=== PATIENT | male | born 1945 | race Caucasian/White ===

== ENCOUNTER 2019-05-10 07:08 | Day surgery (SDC) | payer BC, OTHER ==
[~2019-05-10 07:08] MED LIST: BUPIVACAINE HCL 0.75% INJ/PF (7.5 MG/1 ML) 10 ML SDV OD PRN; DORZOLAMIDE HCL 2%/TIMOLOL MALEAT 0.5% OPH SOLN 10 ML OD PRN; KETOROLAC TROMETHAMINE 0.45% 4 DROP/0.4 ML DROPERETTE OD PRN; LIDOCAINE 4% INJ/PF (40 MG/ML) 5 ML AMPUL OD PRN
[2019-05-10] MEDS: BESIFLOXACIN HCL 0.6% OPH SUSP 5 ML BOTTLE OD PRN ×3 (07:51→08:45)
[2019-05-10] MEDS: CYCLOPENTOLATE 0.2%/PHENYLEPHRINE 1% OPH SOLN 2 ML OD PRN ×3 (07:51→08:11)
[2019-05-10] MEDS: TROPICAMIDE 1% OPH SOLN 15 ML OD PRN ×3 (07:51→08:11)
[2019-05-10] MEDS: TETRACAINE HCL 0.5% OPH SOLN 4 ML OD PRN ×3 (07:52→08:23)
[2019-05-10] MEDS ORDERED: MIDAZOLAM 2 MG/2 ML INJ ONE (08:05)
[2019-05-10] MEDS ORDERED: FENTANYL CITRATE INJ/PF 100 MCG/2 ML AMPUL ONE (08:05)
[2019-05-10] MEDS ORDERED: EPINEPHRINE INJ/PF 1 MG/1 ML AMPULE ONE (08:39)
[2019-05-10] MEDS ORDERED: LIDOCAINE 1% INJ-PF (10 MG/ML) 30 ML SDV ONE (08:39)
[2019-05-10] MEDS ORDERED: CHONDR SU A NA/HYALUR SOD INTRAOCULAR SYSTEM 1 KIT IO ONE (08:39)
--- NOTE | 2019-05-10 08:52 | Operative Report ---
Operative Report-[facility] Operative Report: DATE OF SURGERY: 05/10/2019 PREOPERATIVE DIAGNOSIS: CATARACT, RIGHT EYE. POSTOPERATIVE DIAGNOSIS: CATARACT, RIGHT EYE. PROCEDURE PERFORMED: PHACOEMULSIFICATION WITH POSTERIOR CHAMBER INTRAOCULAR LENS, RIGHT EYE. Intraocular Lens Model : SN 60 WF 19.5 Total Phaco Time: 6.37 CDE SURGEON: NANCY VALDIVIA MD ANESTHESIA: TOPICAL WITH MAC. INDICATIONS FOR SURGERY: Difficulty seen words on TV. PROCEDURE: The patient was brought to the Operating Room and placed on the operative table. Following tetracaine drops, topical anesthesia was administered. This consisted of instrument wipe pledgets soaked in a solution of 4% Xylocaine mixed with 0.75% Marcaine in a 1:2 ratio. A 2 x 1 cm pledget was placed in the superior fornix. A 1 x 1 cm pledget was placed in the inferior fornix. The eye was patched shut for 5 minutes. The patch was removed. The eye was sterilely prepped and draped in the usual manner. Lid speculum was placed in the eye. The pledgets were removed. 4-0 black silk sutures were placed around the superior and the inferior rectus muscles to be used as traction. A conjunctival peritomy was made at the 10 o'clock position. Hemostasis was obtained with bipolar cautery. A posterior limbal groove was created using a crescent knife and dissected anteriorly towards the cornea. A sharp point blade was used to create a paracentesis site at the 2 o'clock position. 0.2 cc non preserved Lidocaine was injected into the anterior chamber. A 2.4 mm keratome was used to enter the anterior chamber through the groove. Viscoelastic was injected into the anterior chamber. An anterior capsulotomy was performed using Utrata forceps in a capsulorrhexis fashion. Hydrodissection and hydrodelineation were performed. Phacoemulsification was performed in [id number] technique. Following this, the I/A unit was used to remove residual cortex. Viscoelastic was injected into the capsular bag. The Intraocular lens was placed in the capsular bag. The I/A unit was used to remove residual viscoelastic. The wound was seen to be watertight under high and low pressure, and no sutures were placed. The intraocular lens was well centered. The pressure was adjusted in the eye to normal pressure. The 4-0 black silk sutures and lid speculum were removed. The eye was shielded after Besivance and Cosopt drops were placed. The patient tolerated the procedure well and was sent to the Recovery Room in good condition.
== END 2019-05-10 09:20 | disposition home or self-care (01) ==
LOC: SC 07:08
PROVIDERS: ATTEND Ophthalmology
DX: H25.813 Combined forms of age-related cataract, bilateral (principal); H16.223 Keratoconjunctivitis sicca, not specified as Sjogren's, bilateral; E11.22 Type 2 diabetes mellitus with diabetic chronic kidney disease; I12.9 Hypertensive chronic kidney disease with stage 1 through stage 4 chronic kidney disease, or unspecified chronic kidney disease; N18.3 Chronic kidney disease, stage 3 (moderate); Z79.4 Long term (current) use of insulin; Z79.899 Other long term (current) drug therapy
CPT/HCPCS: 66984; 82962; 00142; V2632; J2250; J3490 ×5; J0171; J3010; 142

== ENCOUNTER 2019-05-31 06:45 | Day surgery (SDC) | payer OTHER ==
[~2019-05-31 06:45] MED LIST changes: -BUPIVACAINE HCL 0.75% INJ/PF (7.5 MG/1 ML) 10 ML SDV OD PRN; +BUPIVACAINE HCL 0.75% INJ/PF (7.5 MG/1 ML) 10 ML SDV OS PRN; -DORZOLAMIDE HCL 2%/TIMOLOL MALEAT 0.5% OPH SOLN 10 ML OD PRN; -KETOROLAC TROMETHAMINE 0.45% 4 DROP/0.4 ML DROPERETTE OD PRN; +KETOROLAC TROMETHAMINE 0.45% 4 DROP/0.4 ML DROPERETTE OS PRN; -LIDOCAINE 4% INJ/PF (40 MG/ML) 5 ML AMPUL OD PRN; +LIDOCAINE 4% INJ/PF (40 MG/ML) 5 ML AMPUL OS PRN
[2019-05-31] MEDS ORDERED: ONDANSETRON HCL INJ/PF 4 MG/2 ML SDV ONE (06:46)
[2019-05-31] MEDS ORDERED: MIDAZOLAM 2 MG/2 ML INJ ONE (06:47)
[2019-05-31] MEDS ORDERED: FENTANYL CITRATE INJ/PF 100 MCG/2 ML AMPUL ONE (06:47)
[2019-05-31] MEDS: BESIFLOXACIN HCL 0.6% OPH SUSP 5 ML BOTTLE OS PRN ×4 (07:50→08:50)
[2019-05-31] MEDS: CYCLOPENTOLATE 0.2%/PHENYLEPHRINE 1% OPH SOLN 2 ML OS PRN ×3 (07:50→08:10)
[2019-05-31] MEDS: TROPICAMIDE 1% OPH SOLN 15 ML OS PRN ×3 (07:50→08:10)
[2019-05-31] MEDS: TETRACAINE HCL 0.5% OPH SOLN 4 ML OS PRN ×4 (07:50→08:24)
[2019-05-31] MEDS: CHONDR SU A NA/HYALUR INTRAOC KIT (SURGICARE) ONE ×2 (08:38)
[2019-05-31] MEDS: EPINEPHRINE INJ/PF 1 MG/1 ML AMPULE ONE ×2 (08:38)
[2019-05-31] MEDS: LIDOCAINE 1% INJ-PF (10 MG/ML) 30 ML SDV ONE ×2 (08:38)
[2019-05-31] MEDS: DORZOLAMIDE HCL 2%/TIMOLOL MALEAT 0.5% OPH SOLN 10 ML OS PRN ×2 (08:50)
--- NOTE | 2019-05-31 12:48 | Operative Report ---
Operative Report-[facility] Operative Report: DATE OF SURGERY: 05/31/2019 PREOPERATIVE DIAGNOSIS: CATARACT, LEFT EYE. POSTOPERATIVE DIAGNOSIS: CATARACT, LEFT EYE. PROCEDURE PERFORMED: PHACOEMULSIFICATION WITH POSTERIOR CHAMBER INTRAOCULAR LENS, LEFT EYE. Intraocular Lens Model : SN 60 WF 19.5 Total Phaco Time: 4.07 CDE SURGEON: NANCY VALDIVIA MD ANESTHESIA: TOPICAL WITH MAC. INDICATIONS FOR SURGERY: Difficultly driving at night, difficulty seeing TV PROCEDURE: The patient was brought to the Operating Room and placed on the operative table. Following tetracaine drops, topical anesthesia was administered. This consisted of instrument wipe pledgets soaked in a solution of 4% Xylocaine mixed with 0.75% Marcaine in a 1:2 ratio. A 2 x 1 cm pledget was placed in the superior fornix. A 1 x 1 cm pledget was placed in the inferior fornix. The eye was patched shut for 5 minutes. The patch was removed. The eye was sterilely prepped and draped in the usual manner. Lid speculum was placed in the eye. The pledgets were removed. 4-0 black silk sutures were placed around the superior and the inferior rectus muscles to be used as traction. A conjunctival peritomy was made at the 10 o'clock position. Hemostasis was obtained with bipolar cautery. A posterior limbal groove was created using a crescent knife and dissected anteriorly towards the cornea. A sharp point blade was used to create a paracentesis site at the 2 o'clock position. 0.2 cc non preserved Lidocaine was injected into the anterior chamber. A 2.4 mm keratome was used to enter the anterior chamber through the groove. Viscoelastic was injected into the anterior chamber. An anterior capsulotomy was performed using Utrata forceps in a capsulorrhexis fashion. Hydrodissection and hydrodelineation were performed. Phacoemulsification was performed in [id number] technique. Following this, the I/A unit was used to remove residual cortex. Viscoelastic was injected into the capsular bag. The Intraocular lens was placed in the capsular bag. The I/A unit was used to remove residual viscoelastic. The wound was seen to be watertight under high and low pressure, and no sutures were placed. The intraocular lens was well centered. The pressure was adjusted in the eye to normal pressure. The 4-0 black silk sutures and lid speculum were removed. The eye was shielded after Besivance and Cosopt drops were placed. The patient tolerated the procedure well and was sent to the Recovery Room in good condition.
== END 2019-05-31 09:22 | disposition home or self-care (01) ==
LOC: SC 06:45
PROVIDERS: ATTEND Ophthalmology
DX: H25.813 Combined forms of age-related cataract, bilateral (principal); H16.223 Keratoconjunctivitis sicca, not specified as Sjogren's, bilateral; E11.22 Type 2 diabetes mellitus with diabetic chronic kidney disease; I12.9 Hypertensive chronic kidney disease with stage 1 through stage 4 chronic kidney disease, or unspecified chronic kidney disease; N18.3 Chronic kidney disease, stage 3 (moderate); Z79.899 Other long term (current) drug therapy; Z79.4 Long term (current) use of insulin; Z99.2 Dependence on renal dialysis
CPT/HCPCS: 66984; 82962; V2632; J2250; J3490 ×5; J0171; J3010; J2405; 142

== ENCOUNTER 2019-11-19 22:47 | Inpatient (IN) | payer OTHER, MEDICARE ==
--- NOTE | 2019-11-19 23:16 | ER Document Report ---
ED General - General Chief Complaint: Altered Mental Status Stated Complaint: ALTERED MENTAL STATUS Time Seen by Provider: 11/19/19 22:58 Primary Care Provider: HAM,LISANDRO [Primary Care Provider] - Follow up as needed Notes: Patient is a 74-year-old male that comes emergency department for chief complaint of worsening confusion for the past 3 days and over the past day not being able to walk. He comes by EMS from home. Patient states that he has generalized weakness but he denies focal weakness, chest pain, abdominal pain, vomiting, fever, shortness of breath, headache, or fall injury. He does report some back pain but this is not reported to be new. Past medical history includes insulin-dependent diabetes, hypertension, chronic pain management, and he states that he has a tremor at baseline. He denies any cardiac history, he is not reported to be on a blood thinner, no other medical history reported. EMS does not give any additional report. Patient has no additional complaints. He states that he has not taken his medication over the past couple of days "because I could not walk over to get them like I normally can". TRAVEL OUTSIDE OF THE [place] IN LAST 30 DAYS: No - Related Data Allergies/Adverse Reactions: No Known Allergies Allergy (Verified 05/10/19 07:59) Past Medical History - General Information source: Patient, Relative - Social History Smoking Status: Never Smoker Frequency of alcohol use: None Drug Abuse: None Lives with: Family Family History: Reviewed & Not Pertinent Patient has homicidal ideation: No - Past Medical History Cardiac Medical History: Reports: Hx Hypertension Denies: Hx Heart Attack Pulmonary Medical History: Denies: Hx Asthma Neurological Medical History: Denies: Hx Cerebrovascular Accident, Hx Seizures Endocrine Medical History: Reports: Hx Diabetes Mellitus Type 2 - Insulin- dependent GI Medical History: Denies: Hx Hepatitis, Hx Hiatal Hernia, Hx Ulcer Infectious Medical History: Denies: Hx Hepatitis Past Surgical History: Reports: Hx Orthopedic Surgery - R SHOULDER X2. Denies: Hx Open Heart Surgery, Hx Pacemaker - Immunizations Hx Diphtheria, Pertussis, Tetanus Vaccination: Yes Hx Pneumococcal Vaccination: 07/06/04 Review of Systems - Review of Systems Constitutional: See HPI EENT: No symptoms reported Cardiovascular: No symptoms reported Respiratory: No symptoms reported Gastrointestinal: No symptoms reported Genitourinary: No symptoms reported Male Genitourinary: No symptoms reported Musculoskeletal: No symptoms reported Skin: No symptoms reported Hematologic/Lymphatic: No symptoms reported Neurological/Psychological: See HPI Physical Exam - Vital signs Vitals: Temp 98.7 F 11/19/19 22:48 - Notes Notes: GENERAL: Alert, responsive, does not appear to be in distress. Somewhat disheveled. HEAD: Normocephalic, atraumatic. EYES: Pupils equal, round, and reactive to light. Extraocular movements intact. ENT: Oral mucosa parched including lips and tongue, tongue midline. Oropharynx unremarkable. Airway patent. NECK: Full range of motion. Supple. Trachea midline. No lymphadenopathy. LUNGS: Clear to auscultation bilaterally, no wheezes, rales, or rhonchi. No respiratory distress. Non-tender chest wall. HEART: Regular rate and rhythm. No murmur ABDOMEN: Soft, non-tender. Non-distended. EXTREMITIES: Moves all 4 extremities spontaneously. No edema, normal radial and dorsalis pedis pulses bilaterally. No cyanosis. BACK: no cervical, thoracic, lumbar midline tenderness. No saddle anesthesia, normal distal neurovascular exam. Moves all extremities in full range of motion. NEUROLOGICAL: Patient with a very noticeable tremor especially of the arms and with intention movements. Alert and oriented to person and place only, cannot give good details of events. Normal speech. Cranial nerves II through XII grossly intact. Strength 5/5 in all extremities. Patient very ataxic and falls to the left when he tries to ambulate. Patient has to be fully assisted to walk. PSYCH: Normal affect, normal mood. SKIN: Warm, dry, normal turgor. No rashes or lesions noted. Course - Re-evaluation Re-evalutation: Patient is tremulous with almost chorea movements, he answers questions and is alert but he is confused to any details other than person and place. He denies any pain or current complaints. He does not have obvious focal numbness or weakness although he does have some random almost spastic movements when trying to perform coordination testing. In addition to this patient has severe ataxia, I tried to have him walk twice and both times he fell to the left side and required to complete assistance to get back onto the bed. CT of the head was performed which shows no acute lesion. We spoke to the over the phone, she states that up until about 2 days ago patient was able to ambulate without difficulty, she states it has been difficult to care for him over the past 2 days, patient does state that he has not eaten much. Patient was initially hypoglycemic at 60, he was given some dextrose, this increased slightly, we performed a swallow screen and then patient was given p.o. nourishment. CBC nonspecific with a mild normocytic anemia. Chemistry shows acute renal insufficiency with creatinine of 3.85 previous was 1.92. Initially could not give fluids because of hypoglycemia but patient is slowly receiving fluids. Patient had very dry mucous membranes, BUN is elevated. Bicarbonate slightly low at 20 but venous blood gases unremarkable. Unable to obtain urinalysis initially because patient urinated into his briefs, we will obtain a cath sample soon. Chest x-ray is negative. Discussed with patient, discussed with Dr. Serna. Patient will require admission for suspected CVA, needing MRI, inability to ambulate or care for himself at home. 11/20/19 Dr. Gomez has accepted to [facility] full admission. - Vital Signs Vital signs: Temp Pulse Resp BP Pulse Ox 98.7 F 85 16 117/93 H 92 11/19/19 22:48 11/20/19 04:48 11/20/19 06:00 11/20/19 05:01 11/20/19 06:00 - Laboratory Result Diagrams: 11/19/19 23:39 11/19/19 23:39 Laboratory results interpreted by me: 11/19/19 11/19/19 11/20/19 23:39 23:39 05:05 RBC 3.90 L Hgb 12.4 L Hct 34.9 L RDW 14.3 H Chloride 112 H Carbon Dioxide 20 L BUN 59 H Creatinine 3.85 H Est GFR ( Amer) 19 L Est GFR (MDRD) Non-Af 16 L Glucose 60 L Lactic Acid Calcium 8.0 L AST 76 H Total Protein 5.7 L Albumin 3.0 L Urine Protein 100 H Urine Ketones TRACE H Urine Ascorbic Acid 40 H 11/20/19 06:34 RBC Hgb Hct RDW Chloride Carbon Dioxide BUN Creatinine Est GFR ( Amer) Est GFR (MDRD) Non-Af Glucose Lactic Acid 0.5 L Calcium AST Total Protein Albumin Urine Protein Urine Ketones Urine Ascorbic Acid Discharge - Discharge Clinical Impression: Unable to ambulate, Ataxia, Acute renal insufficiency, Hypoglycemia Condition: Stable Disposition: ADMITTED INPATIENT Admitting Provider: Patricia (Hospitalist) Unit Admitted: [facility] [[facility]] - Follow up as needed
[2019-11-20 00:06] LABS: ABSOLUTE BASOPHILS # (AUTO) 0.1 10^3/uL (0.0-0.2); ABSOLUTE EOSINOPHILS # (AUTO) 0.3 10^3/uL (0.0-0.6); ABSOLUTE LYMPHOCYTES (AUTO) 1.6 10^3/uL (0.5-4.7); ABSOLUTE MONOCYTES (AUTO) 0.7 10^3/uL (0.1-1.4); ABSOLUTE NEUT (AUTO) 6.8 10^3/uL (1.7-8.2); BASOPHILS % (AUTO) 0.6 % (0-2); EOSINOPHILS % (AUTO) 2.8 % (0-6); HEMATOCRIT 34.9 % (37.9-51.0); HEMOGLOBIN 12.4 g/dL (13.5-17.0); LYMPHOCYTES % (AUTO) 16.5 % (13-45); MEAN CORPUSCULAR HEMOGLOBIN 31.8 pg (27.0-33.4); MEAN CORPUSCULAR HGB CONC 35.5 g/dL (32.0-36.0); MEAN CORPUSCULAR VOLUME 90 fl (80-97); MONOCYTES % (AUTO) 7.8 % (3-13); PLATELET COUNT 186 10^3/uL (150-450); RED CELL DISTRIBUTION WIDTH 14.3 % (11.5-14.0); SEGMENTED NEUTROPHILS % (AUTO) 72.3 % (42-78); TOTAL CELLS COUNTED % (AUTO) 100 %; WHITE BLOOD COUNT 9.5 10^3/uL (4.0-10.5)
[2019-11-20 00:17] LABS: INTERNATIONAL RATION (INR) 1.11; PROTHROMBIN TIME 14.4 SEC (11.4-15.4)
[2019-11-20 00:21] LABS: ALKALINE PHOSPHATASE 68 U/L (38-126); ANION GAP 10 (5-19); ASPARTATE AMINO TRANSFERASE 76 U/L (17-59); BILIRUBIN,TOTAL 0.5 mg/dL (0.2-1.3); BLOOD UREA NITROGEN 59 mg/dL (7-20); CARBON DIOXIDE 20 mmol/L (22-30); CHLORIDE 112 mmol/L (98-107); TOTAL PROTEIN 5.7 g/dL (6.3-8.2)
--- NOTE | 2019-11-20 00:21 | RADIOLOGY REPORT (SQ) ---
EXAM DESCRIPTION: CT HEAD WITHOUT IV CONTRAST COMPLETED DATE/TME: 11/19/2019 23:07 CLINICAL HISTORY: 74 years, Male, altered mental status COMPARISON: 09/11/2011 CT TECHNIQUE: [id number] Images stored on PACS. All CT scanners at this facility use dose modulation, iterative reconstruction, and/or weight based dosing when appropriate to reduce radiation dose to as low as reasonably achievable (ALARA). [facility]: Dose Right [facility]: CareDose [facility]: Dose Right [facility]: Teradose 4D [facility]: [employer] LIMITATIONS: None. FINDINGS: The globes are intact. The paranasal sinuses and mastoid air cells are well aerated. No displaced or depressed skull fracture. No intra or extra-axial hemorrhage. CT is limited for evaluation of acute infarct. No CT evidence for large or territorial acute infarct. Age-appropriate atrophy with minor small vessel ischemic change. No mass or midline shift IMPRESSION: Age-appropriate atrophy with minor small vessel ischemic change TECHNICAL DOCUMENTATION: Quality ID # [id number]: Final reports with documentation of one or more dose reduction techniques (e.g., Automated exposure control, adjustment of the mA and/or kV according to patient size, use of iterative reconstruction technique) copyright 2011 [employer]- All Rights Reserved
[2019-11-20 00:24] LABS: GLUCOSE 60 mg/dL (75-110)
--- NOTE | 2019-11-20 00:24 | RADIOLOGY REPORT (SQ) ---
EXAM DESCRIPTION: XR CHEST 1 VIEW COMPLETED DATE/TME: 11/19/2019 23:08 CLINICAL HISTORY: 74 years, Male, altered mental status COMPARISON: CT chest 09/11/2011 NUMBER OF VIEWS: 1 TECHNIQUE: Portable chest LIMITATIONS: None. FINDINGS: Heart size is normal. The lungs are clear. There is no pneumothorax IMPRESSION: Negative chest copyright 2011 [employer]- All Rights Reserved
[2019-11-20] MEDS ORDERED: DEXTROSE 50%-WATER 25 GM/50 ML DISP.SYRIN IV ONE ×2 (00:26→00:27)
[2019-11-20 00:32] LABS: VENOUS BLOOD BASE EXCESS -5.4 mmol/L; VENOUS BLOOD HCO3 20.9 mmol/L (20-32); VENOUS BLOOD PCO2 43.8 mmHg (35-63); VENOUS BLOOD PH 7.3 (7.30-7.42)
[2019-11-20] MEDS ORDERED: NORMAL SALINE 500 ML IV ONE ×2 (03:12→06:12)
[2019-11-20 05:57] LABS: APPEARANCE,URINE SLIGHTLY-CLOUDY; BILIRUBIN,URINE NEGATIVE (NEGATIVE); COLOR,URINE YELLOW; GLUCOSE, URINE NEGATIVE (NEGATIVE); KETONES,URINE TRACE mg/dL (NEGATIVE); PROTEIN,URINE 100 mg/dL (NEGATIVE); URINE SPECIFIC GRAVITY 1.014; UROBILINOGEN,URINE NEGATIVE mg/dL (<2.0)
[2019-11-20] MEDS ORDERED: DEXTROSE 40% GEL 15 GM TUBE PO PRN ×2 (07:57)
[2019-11-20] MEDS ORDERED: GLUCAGON,HUMAN RECOMB 1 MG INJ IM PRN (07:57)
[2019-11-20] MEDS ORDERED: DEXTROSE 50%-WATER 25 GM/50 ML DISP.SYRIN IV PRN ×2 (07:57)
[2019-11-20] MEDS: INSULIN LISPRO 100 UNIT/ML 3 ML VIAL SUBCUT SCH ×4 (09:08→22:44)
[2019-11-20] MEDS ORDERED: MAGNESIUM HYDROXIDE SUSP 30 ML UDCUP PO PRN (09:43)
[2019-11-20] MEDS ORDERED: ACETAMINOPHEN 325 MG TABLET PO PRN (09:43)
[2019-11-20] MEDS ORDERED: HYDROCODONE/ACETAMINOPHEN 10-325 MG TABLET PO PRN (09:58)
[2019-11-20] MEDS ORDERED: MAG HYDROX/AL HYDROX/SIMETH SUSP 30 ML UDCUP PO PRN (10:07)
[2019-11-20 10:22] LABS: ALBUMIN 3.3 g/dL (3.5-5.0); ANION GAP 7 (5-19); BLOOD UREA NITROGEN 64 mg/dL (7-20); CALCIUM 8.4 mg/dL (8.4-10.2); CARBON DIOXIDE 24 mmol/L (22-30); CHLORIDE 111 mmol/L (98-107); GLUCOSE 71 mg/dL (75-110); PHOSPHORUS 4.6 mg/dL (2.5-4.5); POTASSIUM 4.3 mmol/L (3.6-5.0)
--- NOTE | 2019-11-20 10:25 | PDOC H&P ---
History of Present Illness Admission Date/PCP: 11/20/19 07:29 [facility] Patient complains of: Weakness and imbalance History of Present Illness: MINAL ROBERT JR is a 74 year old male who is a poor historian. He states he has a past medical history of hypertension, diabetes and increased cholesterol. He reports that on Thursday he had an overwhelming sense of poor balance and weakness. He went to bed. For the next 3 to 4 days he did not get out of bed. He would urinate in the bed. He was not eating or drinking much. His finally brought him to the hospital last night. His BUN and creatinine were elevated at 57 and 3.85. His AST was also slightly elevated. Despite being diabetic his glucose was only 60. CT scan of the head without contrast was negative. In the emergency room evaluation revealed a chronic tremor but when attempting to ambulate the patient consistently fell onto his left side. An MRI has been ordered. The patient will be admitted to the hospitalist service. He will be further assessed for stroke. He has no history of neurodegenerative disease we are aware of. He will be on telemetry. He will have Accu-Cheks regularly. He will be on a diabetic/cardiac diet. He reports to this provider that he does not feel his is able to adequately take care of him at home. Past Medical History Cardiac Medical History: Reports: Hyperlipidema, Hypertension Denies: Atrial Fibrillation, Congestive Heart Failure, Coronary Artery Disease, Myocardial Infarction Pulmonary Medical History: Denies: Asthma, Chronic Obstructive Pulmonary Disease (COPD) EENT Medical History: Reports: Eyes - Currently on multiple eyedrops Neurological Medical History: Denies: Seizures Endocrine Medical History: Reports: Diabetes Mellitus Type 2 - Insulin-dependent Renal/ Medical History: Denies: Chronic Kidney Disease, End Stage Renal Disease Malignancy Medical History: Reports: None GI Medical History: Denies: Gastroesophageal Reflux Disease, Hepatitis, Hiatal Hernia Musculoskeltal Medical History: Reports: Arthritis, Other - Back pain Psychiatric Medical History: Denies: Alcohol Dependency, Depression, Substance Abuse, Tobacco Dependency Hematology: Denies: Anemia, Sickle Cell Disease Past Surgical History Past Surgical History: Reports: Cholecystectomy, Orthopedic Surgery - R SHOULDER X2, bilateral total knee arthroplasty, back surgery, Tonsillectomy Denies: Pacemaker Social History Information Source: Patient Lives with: Family Smoking Status: Former Smoker Electronic Cigarette use?: No Frequency of Alcohol Use: None Hx Recreational Drug Use: No Drugs: None Hx Prescription Drug Abuse: No - Advance Directive Resuscitation Status: Do Not Resuscitate Surrogate healthcare decision maker:: Family History Family History: Reviewed & Not Pertinent, CAD, DM, Other - Diverticulitis Parental Family History Reviewed: Yes Children Family History Reviewed: Yes Sibling(s) Family History Reviewed.: NA Medication/Allergy Home Medications: Cholecalciferol (Vitamin D3) [Vitamin D3 1000 Unit Tablet] 1,000 unit PO DAILY 05/04/19 Cyanocobalamin (Vitamin B-12) [Vitamin B12] 2,500 mcg PO DAILY 05/04/19 Erythromycin Base [Erythromycin Oph 1 Gm Oint Ud] 1 applic ASDIR PRN 05/04/19 Glucosamine Sulfate Dipot Chlr [Glucosamine] 500 mg PO DAILY 05/04/19 Hydrocodone Bit/Acetaminophen [Hydrocodon-Acetaminophn 10-325] 1 each PO PRN PRN 05/04/19 Insulin Aspart [Novolog Flexpen] 20 unit SUBCUT ACBRKFST 05/04/19 Insulin Glargine,Hum.rec.anlog [Lantus Insulin 100 Unit/1 ml 10 ml] 30 unit SUBCUT DAILY 05/04/19 Ketorolac Tromethamine 0.45% [Acuvail 0.45% Oph Soln 0.4 ml/Dropperette] 1 drop OD ASDIR PRN 05/04/19 Moxifloxacin HCl [Vigamox 0.5% Oph Soln 3 ml] 1 drop OP ASDIR PRN 05/04/19 Oxycodone HCl [Oxycontin] 15 mg PO PRN PRN 05/04/19 Prednisolone Acetate [Pred Forte] 1 ml OP ASDIR PRN 05/04/19 Pregabalin 75 mg DAILY 05/04/19 Metoprolol Tartrate [Lopressor 25 mg Tablet] 25 mg PO DAILY 05/31/19 Allergies/Adverse Reactions: No Known Allergies Allergy (Verified 05/10/19 07:59) Review of Systems All systems: reviewed and no additional remarkable complaints except as stated Constitutional: PRESENT: fatigue, weakness Genitourinary: PRESENT: nocturia Musculoskeletal: PRESENT: back pain Neurological: PRESENT: abnormal gait, memory loss, tremor(s) Physical Exam Vital Signs: Temp Pulse Resp BP Pulse Ox 98.7 F 78 11 L 173/62 H 96 0516/20 22:48 11/20/19 08:21 11/20/19 08:00 11/20/19 07:02 11/20/19 07:02 Intake & Output 11/19/19 11/20/19 11/21/19 06:59 06:59 06:59 Intake Total 500 500 Balance 500 500 Weight 109.1 kg General appearance: PRESENT: no acute distress, cooperative, well-developed, well-nourished Head exam: PRESENT: atraumatic, normocephalic Eye exam: PRESENT: conjunctiva pink, EOMI, PERRLA - Pupils are sluggish. ABSENT: scleral icterus Ear exam: PRESENT: normal external ear exam. ABSENT: bleeding, drainage Mouth exam: PRESENT: dry mucosa, tongue midline Neck exam: ABSENT: carotid bruit, JVD, lymphadenopathy, thyromegaly Respiratory exam: PRESENT: clear to auscultation leroy, symmetrical, unlabored. ABSENT: accessory muscle use, prolonged expiratory phas, rales, rhonchi, tachypnea, wheezes Cardiovascular exam: PRESENT: RRR, +S1, +S2, systolic murmur - 2/6. ABSENT: diastolic murmur, irregular rhythm Pulses: PRESENT: normal radial pulses, +1 pedal pulses bilateral GI/Abdominal exam: PRESENT: normal bowel sounds, soft. ABSENT: distended, guarding, mass, tenderness Rectal exam: PRESENT: deferred Gentrourinary exam: ABSENT: indwelling catheter Extremities exam: ABSENT: pedal edema Musculoskeletal exam: PRESENT: normal inspection. ABSENT: deformity Neurological exam: PRESENT: alert, awake, oriented to person, oriented to place, oriented to time, oriented to situation, ataxia - Per emergency room provider report, CN II-XII grossly intact. ABSENT: altered Psychiatric exam: PRESENT: flat affect. ABSENT: agitated, anxious Focused psych exam: ABSENT: delusional, paranoid, restlessness Skin exam: PRESENT: dry, normal color, warm. ABSENT: rash Results Laboratory Results: 11/19/19 23:39 11/19/19 11/19/19 11/19/19 23:39 23:39 23:39 WBC 9.5 RBC 3.90 L Hgb 12.4 L Hct 34.9 L MCV 90 MCH 31.8 MCHC 35.5 RDW 14.3 H Plt Count 186 Seg Neutrophils % 72.3 VBG pH VBG pCO2 VBG HCO3 VBG Base Excess Sodium 142.2 Potassium 4.0 Chloride 112 H Carbon Dioxide 20 L Anion Gap 10 BUN 59 H Creatinine 3.85 H Est GFR ( Amer) 19 L Glucose 60 L Lactic Acid 1.1 Calcium 8.0 L Total Bilirubin 0.5 AST 76 H Alkaline Phosphatase 68 Total Protein 5.7 L Albumin 3.0 L Urine Color Urine Appearance Urine pH Ur Specific [place] Urine Protein Urine Glucose (UA) Urine Ketones Urine Blood Urine RBC (Auto) 11/20/19 11/20/19 11/20/19 00:10 02:34 05:05 WBC RBC Hgb Hct MCV MCH MCHC RDW Plt Count Seg Neutrophils % VBG pH 7.30 VBG pCO2 43.8 VBG HCO3 20.9 VBG Base Excess -5.4 Sodium Potassium Chloride Carbon Dioxide Anion Gap BUN Creatinine Est GFR ( Amer) Glucose Lactic Acid 0.8 Calcium Total Bilirubin AST Alkaline Phosphatase Total Protein Albumin Urine Color YELLOW Urine Appearance SLIGHTLY-CLOUDY Urine pH 5.0 Ur Specific [place] 1.014 Urine Protein 100 H Urine Glucose (UA) NEGATIVE Urine Ketones TRACE H Urine Blood NEGATIVE Urine RBC (Auto) 1 11/20/19 06:34 WBC RBC Hgb Hct MCV MCH MCHC RDW Plt Count Seg Neutrophils % VBG pH VBG pCO2 VBG HCO3 VBG Base Excess Sodium Potassium Chloride Carbon Dioxide Anion Gap BUN Creatinine Est GFR ( Amer) Glucose Lactic Acid 0.5 L Calcium Total Bilirubin AST Alkaline Phosphatase Total Protein Albumin Urine Color Urine Appearance Urine pH Ur Specific [place] Urine Protein Urine Glucose (UA) Urine Ketones Urine Blood Urine RBC (Auto) Impressions: Head CT 11/19/19 23:07 IMPRESSION: Age-appropriate atrophy with minor small vessel ischemic change TECHNICAL DOCUMENTATION: Quality ID # 436: Final reports with documentation of one or more dose reduction techniques (e.g., Automated exposure control, adjustment of the mA and/or kV according to patient size, use of iterative reconstruction technique) copyright 2010 [employer]- All Rights Reserved Chest X-Ray 11/19/19 23:08 IMPRESSION: Negative chest copyright 2010 [employer]- All Rights Reserved Assessment and Plan - Diagnosis (1) Ataxia due to acute cerebrovascular disease Is this a current diagnosis for this admission?: Yes Plan: 11/20/2019 The patient presents with an acute onset of weakness and difficulty ambulating several days ago. He was unable to get out of bed. A CT scan of his head was negative however with his ataxia it is possible that he has had a stroke. MRI and carotid studies are pending. I have ordered PT and OT. I have started 81 mg aspirin daily as well as atorvastatin. We will monitor his blood pressure. He will be on telemetry. (2) Acute renal insufficiency Is this a current diagnosis for this admission?: Yes Plan: 11/20/2019 The acute kidney injury is most likely due to the patient's inability to get out of bed and poor appetite with poor fluid intake over the last 3 to 4 days. He does have underlying diabetes and hypertension but at this time it is unknown if this is acute on chronic or just acute kidney injury. We will hold nephrotoxic medications. He will be on IV fluids. We will check serum chemistries daily. (3) Hypoglycemia Is this a current diagnosis for this admission?: Yes Plan: 11/20/2019 Despite having diabetes the patient's glucose was low on presentation to the emergency department. This certainly substantiates limited appetite especially if he was being given his insulin. He will be on Accu-Cheks with meals and at bedtime. He will have sliding scale coverage. If his Accu-Cheks increase then we will add back some of his Lantus based on his serum glucose readings. (4) Diabetes mellitus type 2 in obese Is this a current diagnosis for this admission?: Yes Plan: 11/20/2019 We will utilize sliding scale for now. Once he begins an oral diet we will add back his Lantus accordingly. (5) Essential hypertension Is this a current diagnosis for this admission?: Yes Plan: 11/20/2019 His medications include metoprolol. With underlying diabetes MANDY inhibitor and statin therapy are suggested. We will avoid nephrotoxic medications including MANDY inhibitors and angiotensin receptor blockers at this time. When his kidney function improves we will reconsider utilizing these medications. (6) Essential tremor Is this a current diagnosis for this admission?: Yes Plan: 11/20/2019 The patient has a history of tremor. It is noted at rest but he describes it as getting worse when he tries to write or do something. He will be seen by physical and Occupational Therapy. His beta-eve therapy could be related to his tremor. He is unable to tell me. He is hypertensive and so it is more likely that that is related to his blood pressure. (7) Unable to ambulate Is this a current diagnosis for this admission?: Yes Plan: 11/20/2019 Significant ataxia. He will be allowed out of bed only with assistance. I have ordered physical therapy to see the patient. We will await their evaluation and then decide what the patient's disposition will be. - Time Time Spent with patient: 35 or more minutes Medications reviewed and adjusted accordingly: Yes Anticipated discharge: SNF - Inpatient Certification Based on my medical assessment, after consideration of the patient's comorbidit ies, presenting symptoms, or acuity I expect that the services needed warrant INPATIENT care.: Yes I certify that my determination is in accordance with my understanding of Me mony's requirements for reasonable and necessary INPATIENT services [42 CFR 412.3e].: Yes Medical Necessity: Need For IV Fluids, Need For Continuous Telemetry Monitoring Post Hospital Care: D/C Admin Dir Documentation
[2019-11-20] MEDS: PREGABALIN 50 MG CAPSULE PO SCH ×2 (10:33→17:17)
[2019-11-20] MEDS: AMLODIPINE BESYLATE 5 MG TABLET PO SCH (10:33)
[2019-11-20] MEDS: ASPIRIN 81 MG TABLET, ENT COATED PO SCH (10:33)
[2019-11-20] MEDS: FAMOTIDINE 20 MG TABLET PO SCH ×2 (10:33→22:37)
[2019-11-20] MEDS: METOPROLOL TARTRATE 25 MG TABLET PO SCH ×2 (10:33→22:36)
[2019-11-20] MEDS: NORMAL SALINE 1000 ML 1,000 ML IV PRN ×2 (10:34→22:37)
--- NOTE | 2019-11-20 12:07 | RADIOLOGY REPORT (SQ) ---
EXAM DESCRIPTION: MRI HEAD WITHOUT IMAGES COMPLETED DATE/TIME: 11/20/2019 11:39 am REASON FOR STUDY: assess for stroke COMPARISON: CT brain 09/11/2011, 11/19/2019 TECHNIQUE: Multiplanar imaging includes non-contrasted T1, T2, FLAIR, and diffusion with ADC map seq uences. Images stored on PACS. LIMITATIONS: None. FINDINGS: ANATOMY: No developmental anomalies. Normal vascular flow voids. Pituitary fossa normal. CSF SPACES: Normal in size and contour. No hemorrhage. CEREBRUM: Diffusion-weighted images are negative for acute ischemic change. No acute intracranial hemorrhage, mass effect, or midline shift. Old infarcts are present in the right frontal perisylvian region, bilateral basal ganglia, and inferi or right occipital lobe. POSTERIOR FOSSA: Old lacunar infarct right cerebellar hemisphere. No findings worrisome for acute is chemia in the posterior fossa. No acute hemorrhage. No edema, masses or mass effect. Internal audit ory canals, cerebello-pontine angles, mastoids normal. DIFFUSION IMAGING: Negative for acute or sub-acute infarction. ORBITS: No masses. Globes normal. PARANASAL SINUSES: No fluid levels. Mucosa normal. OTHER: No other significant finding. IMPRESSION: No acute findings. 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 TECHNICAL DOCUMENTATION: JOB ID: [id number] 2010 [employer]- All Rights Reserved Reading location - IP/workstation name: [email or web address]
[2019-11-20] MEDS: HEPARIN SOD (PORCINE) 5,000 UNIT/ML 1 ML VIAL SUBCUT SCH ×2 (13:44→22:36)
[2019-11-20] MEDS: ATORVASTATIN CALCIUM 40 MG TABLET PO SCH (22:36)
[2019-11-21] MEDS: LORAZEPAM INJ 2 MG/1 ML VIAL IV PRN ×2 (03:23→14:37)
[2019-11-21] MEDS: HEPARIN SOD (PORCINE) 5,000 UNIT/ML 1 ML VIAL SUBCUT SCH ×3 (05:51→23:05)
[2019-11-21 06:10] LABS: ABSOLUTE BASOPHILS # (AUTO) 0.1 10^3/uL (0.0-0.2); ABSOLUTE EOSINOPHILS # (AUTO) 0.5 10^3/uL (0.0-0.6); ABSOLUTE LYMPHOCYTES (AUTO) 1.9 10^3/uL (0.5-4.7); ABSOLUTE MONOCYTES (AUTO) 0.5 10^3/uL (0.1-1.4); ABSOLUTE NEUT (AUTO) 3.8 10^3/uL (1.7-8.2); BASOPHILS % (AUTO) 0.9 % (0-2); HEMOGLOBIN 11.4 g/dL (13.5-17.0); LYMPHOCYTES % (AUTO) 27.9 % (13-45); MEAN CORPUSCULAR HEMOGLOBIN 30.7 pg (27.0-33.4); MEAN CORPUSCULAR HGB CONC 34.4 g/dL (32.0-36.0); MEAN CORPUSCULAR VOLUME 89 fl (80-97); PLATELET COUNT 162 10^3/uL (150-450); RED CELL DISTRIBUTION WIDTH 14.1 % (11.5-14.0); SEGMENTED NEUTROPHILS % (AUTO) 56.2 % (42-78); TOTAL CELLS COUNTED % (AUTO) 100 %; WHITE BLOOD COUNT 6.8 10^3/uL (4.0-10.5)
[2019-11-21 06:32] LABS: ANION GAP 8 (5-19); BLOOD UREA NITROGEN 54 mg/dL (7-20); CALCIUM 8.5 mg/dL (8.4-10.2); CARBON DIOXIDE 20 mmol/L (22-30); CHLORIDE 115 mmol/L (98-107); CHOLESTEROL 154.58 mg/dL (0-200); GLUCOSE 96 mg/dL (75-110); POTASSIUM 4.4 mmol/L (3.6-5.0); TRIGLYCERIDES 140 mg/dL (<150)
[2019-11-21 06:43] LABS: DIRECT LDL 99 mg/dL (<100)
[2019-11-21] MEDS: ASPIRIN 81 MG TABLET, ENT COATED PO SCH (10:16)
[2019-11-21] MEDS: PREGABALIN 50 MG CAPSULE PO SCH ×2 (10:16→17:48)
[2019-11-21] MEDS: AMLODIPINE BESYLATE 5 MG TABLET PO SCH (10:16)
[2019-11-21] MEDS: METOPROLOL TARTRATE 25 MG TABLET PO SCH ×2 (10:17→23:05)
[2019-11-21] MEDS: FAMOTIDINE 20 MG TABLET PO SCH ×2 (10:17→23:05)
[2019-11-21] MEDS: INSULIN LISPRO 100 UNIT/ML 3 ML VIAL SUBCUT SCH ×4 (11:45→23:00)
[2019-11-21] MEDS: HYDRALAZINE HCL INJ/PF 20 MG/1 ML SDV IV PRN (12:55)
[2019-11-21] MEDS: NORMAL SALINE 1000 ML 1,000 ML IV PRN ×2 (13:00→23:10)
[2019-11-21 14:28] LABS: APPEARANCE,URINE CLEAR; BILIRUBIN,URINE NEGATIVE (NEGATIVE); COLOR,URINE YELLOW; GLUCOSE, URINE NEGATIVE (NEGATIVE); KETONES,URINE TRACE mg/dL (NEGATIVE); LEUKOCYTE ESTERASE,URINE NEGATIVE (NEGATIVE); NITRITE,URINE NEGATIVE (NEGATIVE); PROTEIN,URINE 100 mg/dL (NEGATIVE); URINE SPECIFIC GRAVITY 1.012; UROBILINOGEN,URINE NEGATIVE mg/dL (<2.0)
[2019-11-21] MEDS ORDERED: HALOPERIDOL LACTATE INJ 5 MG/1 ML VIAL IV PRN (19:13)
--- NOTE | 2019-11-21 19:49 | PDOC PROGRESS REPORT ---
Subjective Progress Note for:: 11/21/19 Subjective:: Patient was agitated earlier. He was just medicated with lorazepam and difficult to wake up. Reason For Visit: ISCHEMIC STROKE,ATAXIA,ACUTE KIDNEY INJURY,DIABETE Physical Exam Vital Signs: Temp Pulse Resp BP Pulse Ox 98.6 F 80 11 L 141/61 H 96 11/21/19 16:14 11/21/19 16:14 11/21/19 16:14 11/21/19 16:14 11/21/19 16:14 Intake & Output 11/20/19 11/21/19 11/22/19 06:59 06:59 06:59 Intake Total 500 2890 20 Balance 500 2890 20 Weight 109.1 kg 106.2 kg General appearance: PRESENT: no acute distress, other - Medicated Respiratory exam: PRESENT: clear to auscultation leroy - Anteriorly, prolonged expiratory phas, symmetrical, unlabored. ABSENT: rales, rhonchi, tachypnea Cardiovascular exam: PRESENT: RRR, +S1, +S2. ABSENT: diastolic murmur, irregular rhythm GI/Abdominal exam: PRESENT: normal bowel sounds, soft. ABSENT: distended, guarding, tenderness Rectal exam: PRESENT: deferred Neurological exam: PRESENT: other - Medicated and unable to respond Results Laboratory Results: 11/21/19 05:23 11/21/19 05:23 11/21/19 11/21/19 11/21/19 05:23 05:23 13:57 WBC 6.8 RBC 3.70 L Hgb 11.4 L Hct 33.0 L MCV 89 MCH 30.7 MCHC 34.4 RDW 14.1 H Plt Count 162 Seg Neutrophils % 56.2 Sodium 142.6 Potassium 4.4 Chloride 115 H Carbon Dioxide 20 L Anion Gap 8 BUN 54 H Creatinine 3.01 H Est GFR ( Amer) 25 L Glucose 96 Calcium 8.5 Triglycerides 140 Cholesterol 154.58 LDL Cholesterol Direct 99 VLDL Cholesterol 28.0 HDL Cholesterol 37 L Urine Color YELLOW Urine Appearance CLEAR Urine pH 5.0 Ur Specific [place] 1.012 Urine Protein 100 H Urine Glucose (UA) NEGATIVE Urine Ketones TRACE H Urine Blood MODERATE H Urine Nitrite NEGATIVE Ur Leukocyte Esterase NEGATIVE Urine WBC (Auto) 2 Urine RBC (Auto) 166 Impressions: Head CT 11/19/19 23:07 IMPRESSION: Age-appropriate atrophy with minor small vessel ischemic change TECHNICAL DOCUMENTATION: Quality ID # 436: Final reports with documentation of one or more dose reduction techniques (e.g., Automated exposure control, adjustment of the mA and/or kV according to patient size, use of iterative reconstruction technique) copyright 2010 [employer]- All Rights Reserved Chest X-Ray 11/19/19 23:08 IMPRESSION: Negative chest copyright 2010 [employer]- All Rights Reserved Head MRI 11/20/19 00:00 IMPRESSION: No acute findings. 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 Assessment and Plan - Diagnosis (1) Ataxia due to acute cerebrovascular disease Is this a current diagnosis for this admission?: Yes Plan: 11/20/2019 The patient presents with an acute onset of weakness and difficulty ambulating several days ago. He was unable to get out of bed. A CT scan of his head was negative however with his ataxia it is possible that he has had a stroke. MRI and carotid studies are pending. I have ordered PT and OT. I have started 81 mg aspirin daily as well as atorvastatin. We will monitor his blood pressure. He will be on telemetry. 11/21/2019 For MRI no acute stroke. The patient has had multiple infarcts both in the cerebellum and cerebral hemispheres as well as basal ganglia. Does not explain the acute onset of the ataxia. I did talk to the patient's . She reports that there was an acute change so it is difficult to know the exact etiology but he clearly has significant cerebrovascular disease. I explained that he will likely need at least short-term rehab at a long-term facility. Whether he was home not will be based on his progress. She understands. We will continue her current medication regimen. (2) Acute renal insufficiency Is this a current diagnosis for this admission?: Yes Plan: 11/20/2019 The acute kidney injury is most likely due to the patient's inability to get out of bed and poor appetite with poor fluid intake over the last 3 to 4 days. He does have underlying diabetes and hypertension but at this time it is unknown if this is acute on chronic or just acute kidney injury. We will hold nephrotoxic medications. He will be on IV fluids. We will check serum chemistries daily. 11/21/2019 The patient's reports that there is a history of kidney issues but she is not sure of the exact details. She does not remember specific creatinine levels. There is a creatinine level from 2012 that was 1.92. It is likely that his baseline in fact is somewhere between 2 and 3. The GFR is still less than 30 and he may end up with chronic stage IV kidney failure that has been his baseline but not accurately characterized to this point. We will continue IV fluids. We will continue to monitor his chemistries daily. (3) Hypoglycemia Is this a current diagnosis for this admission?: Yes Plan: 11/20/2019 Despite having diabetes the patient's glucose was low on presentation to the emergency department. This certainly substantiates limited appetite especially if he was being given his insulin. He will be on Accu-Cheks with meals and at bedtime. He will have sliding scale coverage. If his Accu-Cheks increase then we will add back some of his Lantus based on his serum glucose readings. 11/21/2019 Resolved (4) Diabetes mellitus type 2 in obese Is this a current diagnosis for this admission?: Yes Plan: 11/20/2019 We will utilize sliding scale for now. Once he begins an oral diet we will add back his Lantus accordingly. 11/21/2019 Continue current regimen. Accu-Cheks are stable. We will adjust insulin regimen based on his Accu-Cheks. (5) Essential hypertension Is this a current diagnosis for this admission?: Yes Plan: 11/20/2019 His medications include metoprolol. With underlying diabetes MANDY inhibitor and statin therapy are suggested. We will avoid nephrotoxic medications including MANDY inhibitors and angiotensin receptor blockers at this time. When his kidney function improves we will reconsider utilizing these medications. 11/21/2019 Blood pressure is still slightly higher than desired. We will continue to monitor. No MANDY or arm medications at this time. (6) Essential tremor Is this a current diagnosis for this admission?: Yes Plan: 11/20/2019 The patient has a history of tremor. It is noted at rest but he describes it as getting worse when he tries to write or do something. He will be seen by physical and Occupational Therapy. His beta-eve therapy could be related to his tremor. He is unable to tell me. He is hypertensive and so it is more likely that that is related to his blood pressure. 11/21/2019 I was discussing with the nurse that the patient was exhibiting myoclonic activity as opposed to atypical intention tremor. There could be a neurodegenerative process at work. Unfortunately we do not have the ability to obtain EMG studies at this time. According to the patient yesterday this is a chronic problem that he is stable and unchanged. (7) Unable to ambulate Is this a current diagnosis for this admission?: Yes Plan: 11/20/2019 Significant ataxia. He will be allowed out of bed only with assistance. I have ordered physical therapy to see the patient. We will await their evaluation and then decide what the patient's disposition will be. 11/21/2019 Continue physical therapy - Time Time Spent with patient: 15-24 minutes Medications reviewed and adjusted accordingly: Yes Anticipated discharge: SNF
[2019-11-21] MEDS: ATORVASTATIN CALCIUM 40 MG TABLET PO SCH (23:05)
[2019-11-22] MEDS: LORAZEPAM INJ 2 MG/1 ML VIAL IV PRN (04:54)
[2019-11-22] MEDS: HEPARIN SOD (PORCINE) 5,000 UNIT/ML 1 ML VIAL SUBCUT SCH ×3 (05:40→21:16)
[2019-11-22 07:29] LABS: ALBUMIN 3.1 g/dL (3.5-5.0); ANION GAP 7 (5-19); BLOOD UREA NITROGEN 39 mg/dL (7-20); CALCIUM 8.6 mg/dL (8.4-10.2); CARBON DIOXIDE 20 mmol/L (22-30); CHLORIDE 118 mmol/L (98-107); GLUCOSE 129 mg/dL (75-110); PHOSPHORUS 2.7 mg/dL (2.5-4.5); POTASSIUM 4.2 mmol/L (3.6-5.0)
[2019-11-22] MEDS: NORMAL SALINE 1000 ML 1,000 ML IV PRN ×2 (07:33→18:19)
[2019-11-22] MEDS: INSULIN LISPRO 100 UNIT/ML 3 ML VIAL SUBCUT SCH ×4 (09:01→21:17)
--- NOTE | 2019-11-22 09:29 | CDI QUERY ---
CDI Query CDI Review: Dear Provider, Please clarify documentation noted: ACUTE KIDNEY INJURY ACUTE RENAL INSUFFICIENCY OTHER *Progress notes state both *Creat 3.01 / 2.46
[2019-11-22] MEDS: AMLODIPINE BESYLATE 5 MG TABLET PO SCH (09:41)
[2019-11-22] MEDS: ASPIRIN 81 MG TABLET, ENT COATED PO SCH (09:42)
[2019-11-22] MEDS: FAMOTIDINE 20 MG TABLET PO SCH ×2 (09:42→21:17)
[2019-11-22] MEDS: PREGABALIN 50 MG CAPSULE PO SCH ×2 (09:42→18:19)
[2019-11-22] MEDS: METOPROLOL TARTRATE 25 MG TABLET PO SCH ×2 (09:42→21:17)
[2019-11-22] MEDS ORDERED: HALOPERIDOL LACTATE INJ 5 MG/1 ML VIAL IV ONE (10:20)
--- NOTE | 2019-11-22 10:25 | PDOC PROGRESS REPORT ---
Subjective Progress Note for:: 11/22/19 Subjective:: Patient is quite agitated. Could be related to benzodiazepine therapy. He is grabbing at this provider making it difficult to examine. Reason For Visit: Ataxia, acute on chronic kidney failure, tremor, hospital psychosis Physical Exam Vital Signs: Temp Pulse Resp BP Pulse Ox 98.3 F 81 18 175/60 H 97 11/22/19 07:23 11/22/19 08:00 11/22/19 08:00 11/22/19 08:00 11/22/19 08:00 Intake & Output 11/21/19 11/22/19 11/23/19 06:59 06:59 06:59 Intake Total 2890 1260 1000 Output Total 200 Balance 2890 1060 1000 Weight 106.2 kg 106.8 kg General appearance: PRESENT: well-developed, well-nourished, other - Agitated. Very restless in bed. Head exam: PRESENT: atraumatic, normocephalic Respiratory exam: PRESENT: clear to auscultation leroy, unlabored. ABSENT: rales, rhonchi, wheezes Cardiovascular exam: PRESENT: RRR, +S1, +S2 GI/Abdominal exam: PRESENT: normal bowel sounds, soft. ABSENT: tenderness Rectal exam: PRESENT: deferred Neurological exam: PRESENT: alert, altered, awake Psychiatric exam: PRESENT: agitated, other - Not making sense. Disoriented. Grabbing at the provider. Trying to get out of bed. Does not take direction or cueing. Focused psych exam: PRESENT: restlessness. ABSENT: paranoid Results Laboratory Results: 11/21/19 05:23 11/22/19 06:45 11/21/19 11/22/19 13:57 06:45 Sodium 144.6 Potassium 4.2 Chloride 118 H Carbon Dioxide 20 L Anion Gap 7 BUN 39 H Creatinine 2.46 H Est GFR ( Amer) 31 L Glucose 129 H Calcium 8.6 Phosphorus 2.7 Magnesium 1.9 Albumin 3.1 L Urine Color YELLOW Urine Appearance CLEAR Urine pH 5.0 Ur Specific [place] 1.012 Urine Protein 100 H Urine Glucose (UA) NEGATIVE Urine Ketones TRACE H Urine Blood MODERATE H Urine Nitrite NEGATIVE Ur Leukocyte Esterase NEGATIVE Urine WBC (Auto) 2 Urine RBC (Auto) 166 Impressions: Head CT 11/19/19 23:07 IMPRESSION: Age-appropriate atrophy with minor small vessel ischemic change TECHNICAL DOCUMENTATION: Quality ID # 436: Final reports with documentation of one or more dose reduction techniques (e.g., Automated exposure control, adjustment of the mA and/or kV according to patient size, use of iterative reconstruction technique) copyright 2010 [employer]- All Rights Reserved Chest X-Ray 11/19/19 23:08 IMPRESSION: Negative chest copyright 2010 [employer]- All Rights Reserved Head MRI 11/20/19 00:00 IMPRESSION: No acute findings. 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 He was unable to get out of bed. A CT scan of his head was negative however with his ataxia it is possible that he has had a stroke. MRI and carotid studies are pending. I have ordered PT and OT. I have started 81 mg aspirin daily as well as atorvastatin. We will monitor his blood pressure. He will be on telemetry. 11/21/2019 For MRI no acute stroke. The patient has had multiple infarcts both in the cerebellum and cerebral hemispheres as well as basal ganglia. Does not explain the acute onset of the ataxia. I did talk to the patient's . She reports that there was an acute change so it is difficult to know the exact etiology but he clearly has significant cerebrovascular disease. I explained that he will likely need at least short-term rehab at a [facility] facility. Whether he was home not will be based on his progress. She understands. We will continue her current medication regimen. 11/22/2019 MRI showed multiple old strokes. Carotid Dopplers are negative. The ataxia is likely a late effect of his old strokes possibly worsened by his diabetes. Continue physical therapy. Will likely need [facility] to attempt to recover as much balance as possible. The patient might benefit from a physiatry or neurology evaluation after discharge. (2) Acute on chronic kidney failure Qualifiers: Acute renal failure type: with acute tubular necrosis Chronic kidney disease stage: stage 3 (moderate) Qualified Code(s): N17.0 - Acute kidney failure with tubular necrosis; N18.3 - Chronic kidney disease, stage 3 (moderate) Is this a current diagnosis for this admission?: Yes Plan: 11/20/2019 The acute kidney injury is most likely due to the patient's inability to get out of bed and poor appetite with poor fluid intake over the last 3 to 4 days. He does have underlying diabetes and hypertension but at this time it is unknown if this is acute on chronic or just acute kidney injury. We will hold nephrotoxic medications. He will be on IV fluids. We will check serum chemistries daily. 11/21/2019 The patient's reports that there is a history of kidney issues but she is not sure of the exact details. She does not remember specific creatinine levels. There is a creatinine level from 2012 that was 1.92. It is likely that his baseline in fact is somewhere between 2 and 3. The GFR is still less than 30 and he may end up with chronic stage IV kidney failure that has been his baseline but not accurately characterized to this point. We will continue IV fluids. We will continue to monitor his chemistries daily. 11/22/2019 The patient in fact has acute on chronic kidney disease. It is likely that the chronic is level 3. The acute injury is likely acute tubular necrosis from volume depletion with suspected decreased oral intake. (3) Diabetes mellitus type 2 in obese Is this a current diagnosis for this admission?: Yes Plan: 11/20/2019 We will utilize sliding scale for now. Once he begins an oral diet we will add back his Lantus accordingly. 11/21/2019 Continue current regimen. Accu-Cheks are stable. We will adjust insulin regimen based on his Accu-Cheks. 11/22/2019 Excellent glucose control. We will continue sliding scale and diet for now. (4) Essential hypertension Is this a current diagnosis for this admission?: Yes Plan: 11/20/2019 His medications include metoprolol. With underlying diabetes MANDY inhibitor and statin therapy are suggested. We will avoid nephrotoxic medications including MANDY inhibitors and angiotensin receptor blockers at this time. When his kidney function improves we will reconsider utilizing these medications. 11/21/2019 Blood pressure is still slightly higher than desired. We will continue to monitor. No MANDY or ARB medications at this time. 11/22/2019 Blood pressures still high. Will likely need in addition to his medications tomorrow if they are no better. (5) Essential tremor Is this a current diagnosis for this admission?: Yes Plan: 11/20/2019 The patient has a history of tremor. It is noted at rest but he describes it as getting worse when he tries to write or do something. He will be seen by physical and Occupational Therapy. His beta-eve therapy could be related to his tremor. He is unable to tell me. He is hypertensive and so it is more likely that that is related to his blood pressure. 11/21/2019 I was discussing with the nurse that the patient was exhibiting myoclonic activity as opposed to atypical intention tremor. There could be a neurodegenerative process at work. Unfortunately we do not have the ability to obtain EMG studies at this time. According to the patient yesterday this is a chronic problem that he is stable and unchanged. 11/22/2019 Continue same treatment plan (6) Unable to ambulate Is this a current diagnosis for this admission?: Yes Plan: 11/20/2019 Significant ataxia. He will be allowed out of bed only with assistance. I have ordered physical therapy to see the patient. We will await their evaluation and then decide what the patient's disposition will be. 11/21/2019 Continue physical therapy 11/22/2019 Will need [facility]p at discharge (7) Hospital psychosis Is this a current diagnosis for this admission?: Yes Plan: 08/24/2019 Patient was agitated last night. He is extremely agitated this morning. He is trying to get out of bed. He was grabbing at the provider and with electro. He would not reorient with cues. His states that he has no history of this and therefore does most likely related to his hospitalization. (8) Hypoglycemia Is this a current diagnosis for this admission?: Yes Plan: 11/20/2019 Despite having diabetes the patient's glucose was low on presentation to the emergency department. This certainly substantiates limited appetite especially if he was being given his insulin. He will be on Accu-Cheks with meals and at bedtime. He will have sliding scale coverage. If his Accu-Cheks increase then we will add back some of his Lantus based on his serum glucose readings. 11/21/2019 Resolved
[2019-11-22] MEDS: HYDRALAZINE HCL INJ/PF 20 MG/1 ML SDV IV PRN (11:41)
[2019-11-22] MEDS: RISPERIDONE 0.5 MG TAB.RAPDIS PO SCH ×2 (11:49→18:19)
[2019-11-22] MEDS: HALOPERIDOL LACTATE INJ 5 MG/1 ML VIAL IV PRN ×2 (13:39→18:19)
--- NOTE | 2019-11-22 15:39 | RADIOLOGY REPORT (SQ) ---
EXAM DESCRIPTION: CAROTID DOPPLER IMAGES COMPLETED DATE/TIME: 11/22/2019 2:44 pm REASON FOR STUDY: Stroke COMPARISON: None. TECHNIQUE: Grayscale ultrasound, Doppler velocity and spectra, and color Doppler images acquired of the extra-cranial carotid and vertebral arteries. Images stored on PACS. LIMITATIONS: 11/20/2019 FINDINGS: RIGHT CAROTID CCA Velocities: Within normal limits. ICA Velocities Peak systolic 75 cm/s. End diastolic 10 cm/s. Proximal ICA/CCA peak systolic ratio 0.9. Normal spectral waveform. Grayscale demonstrates minimal eccentric plaque at the bulb. LEFT CAROTID CCA Velocities: Within normal limits. ICA Velocities Peak systolic 68 cm/s. End diastolic 12 cm/s. Proximal ICA/CCA peak systolic ratio 1.51. Normal spectral waveform. Grayscale demonstrates minimal eccentric plaque at the bulb. VERTEBRAL ARTERIES: Antegrade flow. Normal waveforms. SUBCLAVIAN ARTERIES: Not imaged. OTHER: No other significant finding. IMPRESSION: NO HEMODYNAMICALLY SIGNIFICANT STENOSIS. COMMENT: Quality ID #195: Velocity criteria are extrapolated from the diameter data as defined by t he Society of Radiologists in Ultrasound Consensus Conference. Radiology 2003: 229; 340-346. TECHNICAL DOCUMENTATION: JOB ID: [id number] 2010 [employer]- All Rights Reserved Reading location - IP/workstation name: [email or web address]
[2019-11-22] MEDS: ATORVASTATIN CALCIUM 40 MG TABLET PO SCH (21:17)
[2019-11-23] MEDS: NORMAL SALINE 1000 ML 1,000 ML IV PRN (04:07)
[2019-11-23] MEDS: HEPARIN SOD (PORCINE) 5,000 UNIT/ML 1 ML VIAL SUBCUT SCH ×3 (05:37→22:43)
[2019-11-23 07:26] LABS: ALBUMIN 3.1 g/dL (3.5-5.0); ANION GAP 7 (5-19); BLOOD UREA NITROGEN 26 mg/dL (7-20); CALCIUM 8.5 mg/dL (8.4-10.2); CARBON DIOXIDE 19 mmol/L (22-30); CHLORIDE 120 mmol/L (98-107); GLUCOSE 118 mg/dL (75-110); PHOSPHORUS 2.9 mg/dL (2.5-4.5); POTASSIUM 3.8 mmol/L (3.6-5.0)
[2019-11-23] MEDS ORDERED: FUROSEMIDE INJ/PF 20 MG/2 ML SDV IV ONE (07:39)
[2019-11-23] MEDS: INSULIN LISPRO 100 UNIT/ML 3 ML VIAL SUBCUT SCH ×4 (09:18→22:43)
[2019-11-23] MEDS: PREGABALIN 50 MG CAPSULE PO SCH ×2 (09:34→17:10)
[2019-11-23] MEDS: ASPIRIN 81 MG TABLET, ENT COATED PO SCH (09:34)
[2019-11-23] MEDS: AMLODIPINE BESYLATE 5 MG TABLET PO SCH (09:34)
[2019-11-23] MEDS: LOSARTAN POTASSIUM 25 MG TABLET PO SCH (09:34)
[2019-11-23] MEDS: METOPROLOL TARTRATE 25 MG TABLET PO SCH (09:34)
[2019-11-23] MEDS: FAMOTIDINE 20 MG TABLET PO SCH (09:34)
[2019-11-23] MEDS: RISPERIDONE 0.5 MG TAB.RAPDIS PO SCH ×2 (09:34→17:10)
--- NOTE | 2019-11-23 14:55 | PDOC PROGRESS REPORT ---
Subjective Progress Note for:: 11/23/19 Subjective:: The patient continues to exhibit a tremor. There is not a classic resting pill- rolling tremor such as with Parkinson's and there is slight tremor at rest then so does not purely an intention tremor. He is more calm today but still can be fidgety. Reason For Visit: ISCHEMIC STROKE,ATAXIA,ACUTE KIDNEY INJURY,DIABETE Physical Exam Vital Signs: Temp Pulse Resp BP Pulse Ox 98.2 F 80 19 179/69 H 99 11/23/19 12:50 11/23/19 12:50 11/23/19 12:50 11/23/19 12:50 11/23/19 12:50 Intake & Output 11/22/19 11/23/19 11/24/19 06:59 06:59 06:59 Intake Total 1260 3150 520 Output Total 200 Balance 1060 3150 520 Weight 106.8 kg 105.3 kg General appearance: PRESENT: mild distress, well-developed Head exam: PRESENT: atraumatic, normocephalic Respiratory exam: PRESENT: clear to auscultation leroy, symmetrical, unlabored. ABSENT: prolonged expiratory phas, rales, rhonchi, tachypnea, wheezes Cardiovascular exam: PRESENT: RRR, +S1, +S2. ABSENT: irregular rhythm GI/Abdominal exam: PRESENT: normal bowel sounds, soft. ABSENT: distended, guarding, tenderness Rectal exam: PRESENT: deferred Extremities exam: ABSENT: joint swelling, pedal edema Musculoskeletal exam: PRESENT: normal inspection. ABSENT: ambulatory, deformity Neurological exam: PRESENT: awake, oriented to person. ABSENT: alert Psychiatric exam: PRESENT: flat affect. ABSENT: agitated, anxious Focused psych exam: PRESENT: restlessness. ABSENT: delusional, paranoid Skin exam: PRESENT: dry, normal color, warm. ABSENT: rash Results Laboratory Results: 11/21/19 05:23 11/23/19 06:38 11/23/19 06:38 Sodium 145.7 H Potassium 3.8 Chloride 120 H Carbon Dioxide 19 L Anion Gap 7 BUN 26 H Creatinine 1.90 H Est GFR ( Amer) 42 L Glucose 118 H Calcium 8.5 Phosphorus 2.9 Magnesium 1.7 Albumin 3.1 L Impressions: Head CT 11/19/19 23:07 IMPRESSION: Age-appropriate atrophy with minor small vessel ischemic change TECHNICAL DOCUMENTATION: Quality ID # 436: Final reports with documentation of one or more dose reduction techniques (e.g., Automated exposure control, adjustment of the mA and/or kV according to patient size, use of iterative reconstruction technique) copyright 2010 [employer]- All Rights Reserved Chest X-Ray 11/19/19 23:08 IMPRESSION: Negative chest copyright 2010 [employer]- All Rights Reserved Head MRI 11/20/19 00:00 IMPRESSION: No acute findings. 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 Carotid Doppler Study 11/22/19 00:00 IMPRESSION: NO HEMODYNAMICALLY SIGNIFICANT STENOSIS. 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 He was unable to get out of bed. A CT scan of his head was negative however with his ataxia it is possible that he has had a stroke. MRI and carotid studies are pending. I have ordered PT and OT. I have started 81 mg aspirin daily as well as atorvastatin. We will monitor his blood pressure. He will be on telemetry. 11/21/2019 For MRI no acute stroke. The patient has had multiple infarcts both in the cerebellum and cerebral hemispheres as well as basal ganglia. Does not explain the acute onset of the ataxia. I did talk to the patient's . She reports that there was an acute change so it is difficult to know the exact etiology but he clearly has significant cerebrovascular disease. I explained that he will likely need at least short-term rehab at a retirement facility. Whether he was home not will be based on his progress. She understands. We will continue her current medication regimen. 11/22/2019 MRI showed multiple old strokes. Carotid Dopplers are negative. The ataxia is likely a late effect of his old strokes possibly worsened by his diabetes. Continue physical therapy. Will likely need retirement to attempt to recover as much balance as possible. The patient might benefit from a physiatry or neurology evaluation after discharge. 11/23/2019 As noted above there is no evidence of acute stroke. Perhaps this is progression and yet undiagnosed neurodegenerative disease such as Parkinson's disease. It is difficult to tell. At some point the patient should be seen by a physiatry [facility] neurologist. Continue to try and work with physical therapy. The patient will need ongoing rehab after discharge most likely in a retirement facility. (2) Acute on chronic kidney failure Qualifiers: Acute renal failure type: with acute tubular necrosis Chronic kidney disease stage: stage 3 (moderate) Qualified Code(s): N17.0 - Acute kidney failure with tubular necrosis; N18.3 - Chronic kidney disease, stage 3 (moderate) Is this a current diagnosis for this admission?: Yes Plan: 11/20/2019 The acute kidney injury is most likely due to the patient's inability to get out of bed and poor appetite with poor fluid intake over the last 3 to 4 days. He does have underlying diabetes and hypertension but at this time it is unknown if this is acute on chronic or just acute kidney injury. We will hold nephrotoxic medications. He will be on IV fluids. We will check serum chemistries daily. 11/21/2019 The patient's reports that there is a history of kidney issues but she is not sure of the exact details. She does not remember specific creatinine levels. There is a creatinine level from 2012 that was 1.92. It is likely that his baseline in fact is somewhere between 2 and 3. The GFR is still less than 30 and he may end up with chronic stage IV kidney failure that has been his baseline but not accurately characterized to this point. We will continue IV fluids. We will continue to monitor his chemistries daily. 11/22/2019 The patient in fact has acute on chronic kidney disease. It is likely that the chronic is level 3. The acute injury is likely acute tubular necrosis from volume depletion with suspected decreased oral intake. 11/23/2019 He appears to be back to his baseline. We will discontinue IV fluids. (3) Diabetes mellitus type 2 in obese Is this a current diagnosis for this admission?: Yes Plan: 11/20/2019 We will utilize sliding scale for now. Once he begins an oral diet we will add back his Lantus accordingly. 11/21/2019 Continue current regimen. Accu-Cheks are stable. We will adjust insulin regimen based on his Accu-Cheks. 11/22/2019 Excellent glucose control. We will continue sliding scale and diet for now. (4) Essential hypertension Is this a current diagnosis for this admission?: Yes Plan: 11/20/2019 His medications include metoprolol. With underlying diabetes MANDY inhibitor and statin therapy are suggested. We will avoid nephrotoxic medications including MANDY inhibitors and angiotensin receptor blockers at this time. When his kidney function improves we will reconsider utilizing these medications. 11/21/2019 Blood pressure is still slightly higher than desired. We will continue to monitor. No MANDY or ARB medications at this time. 11/22/2019 Blood pressures still high. Will likely need in addition to his medications t omorrow if they are no better. 11/23/2019 Patient still with elevated blood pressures. Will increase metoprolol. (5) Essential tremor Is this a current diagnosis for this admission?: Yes Plan: 11/20/2019 The patient has a history of tremor. It is noted at rest but he describes it as getting worse when he tries to write or do something. He will be seen by physical and Occupational Therapy. His beta-eve therapy could be related to his tremor. He is unable to tell me. He is hypertensive and so it is more likely that that is related to his blood pressure. 11/21/2019 I was discussing with the nurse that the patient was exhibiting myoclonic activity as opposed to atypical intention tremor. There could be a neurodegenerative process at work. Unfortunately we do not have the ability to obtain EMG studies at this time. According to the patient yesterday this is a chronic problem that he is stable and unchanged. 11/22/2019 Continue same treatment plan 11/23/2019 Consider other causes of tremor such as neurodegenerative disease (6) Unable to ambulate Is this a current diagnosis for this admission?: Yes Plan: 11/20/2019 Significant ataxia. He will be allowed out of bed only with assistance. I have ordered physical therapy to see the patient. We will await their evaluation and then decide what the patient's disposition will be. 11/21/2019 Continue physical therapy 11/22/2019 Will need retirement at discharge 11/23/2019 Plan for retirement at discharge (7) Hospital psychosis Is this a current diagnosis for this admission?: Yes Plan: 11/22/2019 Patient was agitated last night. He is extremely agitated this morning. He is trying to get out of bed. He was grabbing at the provider and with electro. He would not reorient with cues. His states that he has no history of this and therefore does most likely related to his hospitalization. 11/23/2019 Will decrease the dose of Risperdal as patient seems slightly sleepy today (8) Hypoglycemia Is this a current diagnosis for this admission?: Yes Plan: 11/20/2019 Despite having diabetes the patient's glucose was low on presentation to the em ergency department. This certainly substantiates limited appetite especially if he was being given his insulin. He will be on Accu-Cheks with meals and at bedtime. He will have sliding scale coverage. If his Accu-Cheks increase then we will add back some of his Lantus based on his serum glucose readings. 11/21/2019 Resolved - Time Time Spent with patient: Less than 15 minutes Medications reviewed and adjusted accordingly: Yes Anticipated discharge: SNF
[2019-11-23] MEDS ORDERED: AMLODIPINE BESYLATE 5 MG TABLET PO ONE ×2 (15:00→17:30)
[2019-11-23] MEDS: ATORVASTATIN CALCIUM 40 MG TABLET PO SCH (22:43)
[2019-11-23] MEDS: METOPROLOL TARTRATE 50 MG TABLET PO SCH (22:44)
[2019-11-24] MEDS: HEPARIN SOD (PORCINE) 5,000 UNIT/ML 1 ML VIAL SUBCUT SCH ×3 (05:33→21:28)
[2019-11-24 06:47] LABS: HEMATOCRIT 36.8 % (37.9-51.0); HEMOGLOBIN 12.9 g/dL (13.5-17.0); MEAN CORPUSCULAR HEMOGLOBIN 30.5 pg (27.0-33.4); MEAN CORPUSCULAR HGB CONC 35.1 g/dL (32.0-36.0); MEAN CORPUSCULAR VOLUME 87 fl (80-97); PLATELET COUNT 166 10^3/uL (150-450); RED BLOOD COUNT 4.23 10^6/uL (4.35-5.55); RED CELL DISTRIBUTION WIDTH 14.2 % (11.5-14.0); WHITE BLOOD COUNT 8.2 10^3/uL (4.0-10.5)
[2019-11-24 07:21] LABS: ALBUMIN 3.4 g/dL (3.5-5.0); ANION GAP 11 (5-19); BLOOD UREA NITROGEN 22 mg/dL (7-20); CALCIUM 9.1 mg/dL (8.4-10.2); CARBON DIOXIDE 20 mmol/L (22-30); CHLORIDE 116 mmol/L (98-107); GLUCOSE 148 mg/dL (75-110); PHOSPHORUS 3.3 mg/dL (2.5-4.5); POTASSIUM 3.8 mmol/L (3.6-5.0)
[2019-11-24] MEDS ORDERED: RISPERIDONE 0.5 MG TAB.RAPDIS PO SCH (10:00)
[2019-11-24] MEDS: INSULIN LISPRO 100 UNIT/ML 3 ML VIAL SUBCUT SCH ×4 (10:14→22:04)
[2019-11-24] MEDS: ASPIRIN 81 MG TABLET, ENT COATED PO SCH (10:27)
[2019-11-24] MEDS: AMLODIPINE BESYLATE 10 MG TABLET PO SCH (10:27)
[2019-11-24] MEDS: FAMOTIDINE 20 MG TABLET PO SCH (10:27)
[2019-11-24] MEDS: LOSARTAN POTASSIUM 25 MG TABLET PO SCH (10:27)
[2019-11-24] MEDS: METOPROLOL TARTRATE 50 MG TABLET PO SCH ×2 (10:27→21:27)
[2019-11-24] MEDS: PREGABALIN 50 MG CAPSULE PO SCH ×2 (10:27→18:07)
[2019-11-24] MEDS: RISPERIDONE 1 MG TAB.RAPDIS PO SCH ×2 (10:41→18:06)
[2019-11-24] MEDS ORDERED: ACETAMINOPHEN 325 MG TABLET PO PRN (14:56)
--- NOTE | 2019-11-24 17:34 | PDOC PROGRESS REPORT ---
Subjective Progress Note for:: 11/24/19 Subjective:: No adverse events overnight. He remains in soft restraints for his safety. Vital signs of been stable. Mental status apparently is unchanged from prior exams. Reason For Visit: ISCHEMIC STROKE,ATAXIA,ACUTE KIDNEY INJURY,DIABETE Physical Exam Vital Signs: Temp Pulse Resp BP Pulse Ox 98.3 F 100 18 154/71 H 98 11/24/19 12:00 11/24/19 14:00 11/24/19 12:00 11/24/19 12:00 11/24/19 12:00 Intake & Output 11/23/19 11/24/19 11/25/19 06:59 06:59 06:59 Intake Total 3150 742 Balance 3150 742 Weight 105.3 kg 103.5 kg General appearance: PRESENT: no acute distress, cooperative, disheveled, other - Soft limb restraints Respiratory exam: PRESENT: clear to auscultation leroy, symmetrical, unlabored. ABSENT: accessory muscle use, chest wall tenderness, crackles, prolonged expiratory phas, rhonchi, tachypnea, wheezes Cardiovascular exam: PRESENT: RRR, +S1, +S2 Pulses: PRESENT: normal carotid pulses Vascular exam: PRESENT: normal capillary refill GI/Abdominal exam: PRESENT: normal bowel sounds, soft. ABSENT: distended, guarding, rebound, tenderness Extremities exam: ABSENT: clubbing, pedal edema Musculoskeletal exam: PRESENT: normal inspection. ABSENT: deformity Neurological exam: PRESENT: awake, oriented to person. ABSENT: oriented to situation Psychiatric exam: PRESENT: flat affect Skin exam: PRESENT: dry, warm Results Laboratory Results: 11/24/19 06:24 11/24/19 06:24 11/24/19 11/24/19 06:24 06:24 WBC 8.2 RBC 4.23 L Hgb 12.9 L Hct 36.8 L MCV 87 MCH 30.5 MCHC 35.1 RDW 14.2 H Plt Count 166 Sodium 146.8 H Potassium 3.8 Chloride 116 H Carbon Dioxide 20 L Anion Gap 11 BUN 22 H Creatinine 2.05 H Est GFR ( Amer) 39 L Glucose 148 H Calcium 9.1 Phosphorus 3.3 Magnesium 1.5 L Albumin 3.4 L Impressions: Head CT 11/19/19 23:07 IMPRESSION: Age-appropriate atrophy with minor small vessel ischemic change TECHNICAL DOCUMENTATION: Quality ID # [id number]: Final reports with documentation of one or more dose reduction techniques (e.g., Automated exposure control, adjustment of the mA and/or kV according to patient size, use of iterative reconstruction technique) copyright 2010 [employer]- All Rights Reserved Chest X-Ray 11/19/19 23:08 IMPRESSION: Negative chest copyright 2010 [employer]- All Rights Reserved Head MRI 11/20/19 00:00 IMPRESSION: No acute findings. 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 Carotid Doppler Study 11/22/19 00:00 IMPRESSION: NO HEMODYNAMICALLY SIGNIFICANT STENOSIS. Assessment and Plan - Diagnosis (1) Acute on chronic kidney failure Qualifiers: Acute renal failure type: with acute tubular necrosis Chronic kidney disease stage: stage 3 (moderate) Qualified Code(s): N17.0 - Acute kidney failure with tubular necrosis; N18.3 - Chronic kidney disease, stage 3 (moderate) Is this a current diagnosis for this admission?: Yes Plan: Resolved. Creatinine back to baseline. IV fluids have been discontinued. (2) Ataxia Is this a current diagnosis for this admission?: Yes (3) Diabetes mellitus type 2 in obese Is this a current diagnosis for this admission?: Yes Plan: Blood sugars have been very well controlled (4) Essential hypertension Is this a current diagnosis for this admission?: Yes Plan: Blood pressures have been stable, may need to adjust his regimen for some improved control (5) Essential tremor Is this a current diagnosis for this admission?: Yes Plan: He will likely need outpatient neurology follow-up (6) Hospital psychosis Is this a current diagnosis for this admission?: Yes Plan: He has been put on Risperdal because he was extremely agitated a couple of days ago. That may be having some effect on his mental status now. He has a history of prior stroke and nothing showed up on his initial imaging, so I am repeating a scan just to make sure he does not have something that has taken some time to mature on imaging. (7) Unable to ambulate Is this a current diagnosis for this admission?: Yes Plan: Plan for senior living at discharge - Time Time Spent with patient: 25-34 minutes
[2019-11-24] MEDS: HALOPERIDOL LACTATE INJ 5 MG/1 ML VIAL IV PRN (20:28)
[2019-11-24] MEDS: ATORVASTATIN CALCIUM 40 MG TABLET PO SCH (21:27)
--- NOTE | 2019-11-24 22:52 | RADIOLOGY REPORT (SQ) ---
CT HEAD WITHOUT IV CONTRAST CLINICAL STATEMENT: encephalopathy TECHNIQUE: Axial CT images from skull base to vertex without IV contrast. This exam was performed according to our departmental dose optimization program, and includes the following measures where applicable: automated exposure control, adjustment of the mAs and/or kVp according to patient size and/or exam, and an iterative reconstruction algorithm. COMPARISON: Unenhanced CT scan of the brain November 19, 2019 FINDINGS: There is no acute intracranial hemorrhage, mass, mass effect or abnormal extra-axial fluid collection. No evidence of an acute territorial infarct is identified. Diffuse global volume loss is noted with prominence of ventricles, sulci and CSF spaces. The appearance is similar to the previous exam. Subtle areas of old infarction are again noted in the right cerebellum, the right occipital lobe and in the basal ganglion bilaterally. These were better seen on the previous MRI. Overall the appearance is stable. Calvaria: The skull base and calvaria demonstrate no abnormality. Paranasal sinuses: Visualized portions of the orbits and paranasal sinuses are unremarkable. skull base: Unremarkable IMPRESSION: 1. No intracranial hemorrhage or mass lesion. 2. Diffuse global volume loss with old infarct in the right cerebellum, right occipital lobe and in the basal ganglion bilaterally. These were better seen on the previous MRI. No acute process.
[2019-11-25] MEDS: HYDRALAZINE HCL INJ/PF 20 MG/1 ML SDV IV PRN (01:40)
[2019-11-25] MEDS: HEPARIN SOD (PORCINE) 5,000 UNIT/ML 1 ML VIAL SUBCUT SCH ×3 (05:01→22:11)
[2019-11-25] MEDS: INSULIN LISPRO 100 UNIT/ML 3 ML VIAL SUBCUT SCH ×4 (08:14→22:11)
[2019-11-25 10:05] LABS: ANION GAP 12 (5-19); BLOOD UREA NITROGEN 26 mg/dL (7-20); CALCIUM 8.6 mg/dL (8.4-10.2); CARBON DIOXIDE 21 mmol/L (22-30); CHLORIDE 113 mmol/L (98-107); GLUCOSE 140 mg/dL (75-110); POTASSIUM 3.5 mmol/L (3.6-5.0)
[2019-11-25] MEDS: AMLODIPINE BESYLATE 10 MG TABLET PO SCH (10:29)
[2019-11-25] MEDS: LOSARTAN POTASSIUM 50 MG TABLET PO SCH (10:29)
[2019-11-25] MEDS: METOPROLOL TARTRATE 50 MG TABLET PO SCH ×2 (10:29→22:11)
[2019-11-25] MEDS: FAMOTIDINE 20 MG TABLET PO SCH (10:29)
[2019-11-25] MEDS: PREGABALIN 50 MG CAPSULE PO SCH ×2 (10:29→17:15)
[2019-11-25] MEDS: ASPIRIN 81 MG TABLET, ENT COATED PO SCH (10:29)
[2019-11-25] MEDS ORDERED: HALOPERIDOL LACTATE INJ 5 MG/1 ML VIAL IV ONE (15:00)
--- NOTE | 2019-11-25 16:18 | PDOC PROGRESS REPORT ---
Subjective Progress Note for:: 11/25/19 Subjective:: No adverse events overnight. They were able to get him out of limb restraints and put him in soft mittens. He has been fairly calm this morning. We did a repeat head CT on him yesterday that showed no new deficits, but evidence of several old strokes just as he had on admission. He woke up this morning and talk to me a little bit, but even though he was pleasant and cooperative, he was still disoriented. I do not know what his normal baseline mental status is. Reason For Visit: ISCHEMIC STROKE,ATAXIA,ACUTE KIDNEY INJURY,DIABETE Physical Exam Vital Signs: Temp Pulse Resp BP Pulse Ox 99.0 F 95 17 132/63 H 98 11/25/19 11:50 11/25/19 14:00 11/25/19 12:00 11/25/19 12:00 11/25/19 12:00 Intake & Output 11/24/19 11/25/19 11/26/19 06:59 06:59 06:59 Intake Total 742 320 0 Balance 742 320 0 Weight 103.5 kg 101.3 kg General appearance: PRESENT: no acute distress, cooperative, disheveled, other - Soft mittens Respiratory exam: PRESENT: clear to auscultation leroy, symmetrical, unlabored. ABSENT: accessory muscle use, chest wall tenderness, crackles, prolonged expiratory phas, rhonchi, tachypnea, wheezes Cardiovascular exam: PRESENT: RRR, +S1, +S2 Pulses: PRESENT: normal carotid pulses Vascular exam: PRESENT: normal capillary refill GI/Abdominal exam: PRESENT: normal bowel sounds, soft. ABSENT: distended, guarding, rebound, tenderness Extremities exam: ABSENT: clubbing, pedal edema Musculoskeletal exam: PRESENT: normal inspection. ABSENT: deformity Neurological exam: PRESENT: awake, oriented to person. ABSENT: oriented to situation Psychiatric exam: PRESENT: flat affect Skin exam: PRESENT: dry, warm Results Laboratory Results: 11/24/19 06:24 11/25/19 08:56 11/25/19 08:56 Sodium 145.8 H Potassium 3.5 L Chloride 113 H Carbon Dioxide 21 L Anion Gap 12 BUN 26 H Creatinine 1.87 H Est GFR ( Amer) 43 L Glucose 140 H Calcium 8.6 11/20/19 02:34 Blood Blood Culture - Final NO GROWTH IN 5 DAYS 11/20/19 00:11 Blood Blood Culture - Final NO GROWTH IN 5 DAYS Impressions: Chest X-Ray 11/19/19 23:08 IMPRESSION: Negative chest copyright 2011 [employer]- All Rights Reserved Head MRI 11/20/19 00:00 IMPRESSION: No acute findings. 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 Carotid Doppler Study 11/22/19 00:00 IMPRESSION: NO HEMODYNAMICALLY SIGNIFICANT STENOSIS. Head CT 11/24/19 00:00 IMPRESSION: 1. No intracranial hemorrhage or mass lesion. 2. Diffuse global volume loss with old infarct in the right cerebellum, right occipital lobe and in the basal ganglion bilaterally. These were better seen on the previous MRI. No acute process. Assessment and Plan - Diagnosis (1) Acute on chronic kidney failure Qualifiers: Acute renal failure type: with acute tubular necrosis Chronic kidney disease stage: stage 3 (moderate) Qualified Code(s): N17.0 - Acute kidney fa ilure with tubular necrosis; N18.3 - Chronic kidney disease, stage 3 (moderate) Is this a current diagnosis for this admission?: Yes Plan: Resolved. Creatinine back to baseline. IV fluids have been discontinued. (2) Ataxia Is this a current diagnosis for this admission?: Yes (3) Diabetes mellitus type 2 in obese Is this a current diagnosis for this admission?: Yes Plan: Blood sugars have been very well controlled (4) Essential hypertension Is this a current diagnosis for this admission?: Yes Plan: Blood pressures have been stable, well controlled today (5) Essential tremor Is this a current diagnosis for this admission?: Yes Plan: He will likely need outpatient neurology follow-up (6) Hospital psychosis Is this a current diagnosis for this admission?: Yes Plan: I am beginning to think that a lot of what we are seeing is some effects of some hospital psychosis due to what I believe is possibly some baseline vascular dementia but his family is telling us that he is very alert at home. He is alert today and calm and cooperative, but still disoriented. I do not know what effect some of these medications have on him as it regards his current mental status, so I am going to discontinue his Risperdal and Haldol, let the medication washout, and then reassess his mental status afterwards had some time for his system to get back to a non-medicated state. (7) Unable to ambulate Is this a current diagnosis for this admission?: Yes Plan: Plan for alf at discharge - Time Time Spent with patient: 15-24 minutes
[2019-11-25] MEDS: ATORVASTATIN CALCIUM 40 MG TABLET PO SCH (22:11)
[2019-11-26] MEDS: HEPARIN SOD (PORCINE) 5,000 UNIT/ML 1 ML VIAL SUBCUT SCH ×3 (06:02→21:41)
[2019-11-26] MEDS: HYDRALAZINE HCL INJ/PF 20 MG/1 ML SDV IV PRN (06:02)
[2019-11-26] MEDS: INSULIN LISPRO 100 UNIT/ML 3 ML VIAL SUBCUT SCH ×4 (08:41→21:41)
[2019-11-26] MEDS: LOSARTAN POTASSIUM 50 MG TABLET PO SCH (10:18)
[2019-11-26] MEDS: FAMOTIDINE 20 MG TABLET PO SCH (10:18)
[2019-11-26] MEDS: AMLODIPINE BESYLATE 10 MG TABLET PO SCH (10:18)
[2019-11-26] MEDS: ASPIRIN 81 MG TABLET, ENT COATED PO SCH (10:18)
[2019-11-26] MEDS: PREGABALIN 50 MG CAPSULE PO SCH ×2 (10:18→17:49)
[2019-11-26] MEDS: METOPROLOL TARTRATE 50 MG TABLET PO SCH ×2 (10:18→21:41)
[2019-11-26 10:37] LABS: ANION GAP 7 (5-19); BLOOD UREA NITROGEN 31 mg/dL (7-20); CALCIUM 8.3 mg/dL (8.4-10.2); CARBON DIOXIDE 23 mmol/L (22-30); CHLORIDE 114 mmol/L (98-107); GLUCOSE 174 mg/dL (75-110); POTASSIUM 3.7 mmol/L (3.6-5.0)
--- NOTE | 2019-11-26 15:14 | PDOC PROGRESS REPORT ---
Subjective Progress Note for:: 11/26/19 Subjective:: No adverse events overnight. No new complaints. He has been out of restraints and has been pleasant and cooperative. His mental status seems to have improved a little bit this morning. Blood pressure had improved a bit after he got his medications this morning. Reason For Visit: ISCHEMIC STROKE,ATAXIA,ACUTE KIDNEY INJURY,DIABETE Physical Exam Vital Signs: Temp Pulse Resp BP Pulse Ox 98.5 F 95 16 122/50 L 96 11/26/19 11:32 11/26/19 11:32 11/26/19 11:32 11/26/19 11:32 11/26/19 11:32 Intake & Output 11/25/19 11/26/19 11/27/19 06:59 06:59 06:59 Intake Total 320 240 Balance 320 240 Weight 101.3 kg 101.3 kg General appearance: PRESENT: no acute distress, cooperative, disheveled Respiratory exam: PRESENT: clear to auscultation leroy, symmetrical, unlabored. ABSENT: accessory muscle use, chest wall tenderness, crackles, prolonged expiratory phas, rhonchi, tachypnea, wheezes Cardiovascular exam: PRESENT: RRR, +S1, +S2 Pulses: PRESENT: normal carotid pulses Vascular exam: PRESENT: normal capillary refill GI/Abdominal exam: PRESENT: normal bowel sounds, soft. ABSENT: distended, guarding, rebound, tenderness Extremities exam: ABSENT: clubbing, pedal edema Musculoskeletal exam: PRESENT: normal inspection. ABSENT: deformity Neurological exam: PRESENT: awake, oriented to person, oriented to situation Psychiatric exam: PRESENT: flat affect Skin exam: PRESENT: dry, warm Results Laboratory Results: 11/24/19 06:24 11/26/19 09:55 11/26/19 09:55 Sodium 143.6 Potassium 3.7 Chloride 114 H Carbon Dioxide 23 Anion Gap 7 BUN 31 H Creatinine 1.85 H Est GFR ( Amer) 44 L Glucose 174 H Calcium 8.3 L Impressions: Chest X-Ray 11/19/19 23:08 IMPRESSION: Negative chest copyright 2011 [employer]- All Rights Reserved Head MRI 11/20/19 00:00 IMPRESSION: No acute findings. 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 Carotid Doppler Study 11/22/19 00:00 IMPRESSION: NO HEMODYNAMICALLY SIGNIFICANT STENOSIS. Head CT 11/24/19 00:00 IMPRESSION: 1. No intracranial hemorrhage or mass lesion. 2. Diffuse global volume loss with old infarct in the right cerebellum, right occipital lobe and in the basal ganglion bilaterally. These were better seen on the previous MRI. No acute process. Assessment and Plan - Diagnosis (1) Acute on chronic kidney failure Qualifiers: Acute renal failure type: with acute tubular necrosis Chronic kidney disease stage: stage 3 (moderate) Qualified Code(s): N17.0 - Acute kidney failure with tubular necrosis; N18.3 - Chronic kidney disease, stage 3 (moderate) Is this a current diagnosis for this admission?: Yes Plan: Resolved. Creatinine back to baseline. (2) Ataxia Is this a current diagnosis for this admission?: Yes (3) Diabetes mellitus type 2 in obese Is this a current diagnosis for this admission?: Yes Plan: Blood sugars have been very well controlled (4) Essential hypertension Is this a current diagnosis for this admission?: Yes Plan: Blood pressure now well controlled on his current regimen (5) Essential tremor Is this a current diagnosis for this admission?: Yes Plan: He will likely need outpatient neurology follow-up (6) Hospital psychosis Is this a current diagnosis for this admission?: Yes Plan: I think this is resolved. He seems much more calm and cooperative now. I think he got a little disoriented when he first came into the hospital. He initially required restraints, but he has not been in restraints since yesterday. We have taken him off of his Risperdal and his Haldol he seems to be doing a lot better from a mental status standpoint. Brain imaging was negative for new stroke. (7) Unable to ambulate Is this a current diagnosis for this admission?: Yes Plan: Plan for long term at discharge - Time Time Spent with patient: 15-24 minutes
[2019-11-26] MEDS: ATORVASTATIN CALCIUM 40 MG TABLET PO SCH (21:41)
[2019-11-27] MEDS: HYDRALAZINE HCL INJ/PF 20 MG/1 ML SDV IV PRN (03:28)
[2019-11-27] MEDS: HEPARIN SOD (PORCINE) 5,000 UNIT/ML 1 ML VIAL SUBCUT SCH ×3 (05:25→22:06)
[2019-11-27 06:22] LABS: ANION GAP 8 (5-19); BLOOD UREA NITROGEN 34 mg/dL (7-20); CALCIUM 8.2 mg/dL (8.4-10.2); CARBON DIOXIDE 23 mmol/L (22-30); CHLORIDE 110 mmol/L (98-107); GLUCOSE 186 mg/dL (75-110); POTASSIUM 3.3 mmol/L (3.6-5.0)
[2019-11-27] MEDS: INSULIN LISPRO 100 UNIT/ML 3 ML VIAL SUBCUT SCH ×4 (08:04→22:04)
[2019-11-27] MEDS: PREGABALIN 50 MG CAPSULE PO SCH ×2 (09:07→17:53)
[2019-11-27] MEDS: FAMOTIDINE 20 MG TABLET PO SCH (09:07)
[2019-11-27] MEDS: ASPIRIN 81 MG TABLET, ENT COATED PO SCH (09:07)
[2019-11-27] MEDS: CARVEDILOL 12.5 MG TABLET PO SCH ×2 (09:08→22:02)
[2019-11-27] MEDS: AMLODIPINE BESYLATE 10 MG TABLET PO SCH (09:08)
[2019-11-27] MEDS: LOSARTAN POTASSIUM 50 MG TABLET PO SCH (09:08)
--- NOTE | 2019-11-27 12:11 | PDOC PROGRESS REPORT ---
Subjective Progress Note for:: 11/27/19 Subjective:: No adverse events overnight. He had a calm and restful night. He was the most alert and interactive and I have seen him since of have been involved in his care. He was able to tell me what he had for breakfast this morning. His blood pressure was still little elevated so some adjustments have been made to his medications. He was able to feed himself this morning. Reason For Visit: ISCHEMIC STROKE,ATAXIA,ACUTE KIDNEY INJURY,DIABETE Physical Exam Vital Signs: Temp Pulse Resp BP Pulse Ox 98.3 F 95 18 161/78 H 97 11/27/19 07:46 11/27/19 08:00 11/27/19 08:00 11/27/19 08:00 11/27/19 08:00 Intake & Output 11/26/19 11/27/19 11/28/19 06:59 06:59 06:59 Intake Total 240 938 Balance 240 938 Weight 101.3 kg 100.8 kg General appearance: PRESENT: no acute distress, cooperative, disheveled Respiratory exam: PRESENT: clear to auscultation leroy, symmetrical, unlabored. ABSENT: accessory muscle use, chest wall tenderness, crackles, prolonged expiratory phas, rhonchi, tachypnea, wheezes Cardiovascular exam: PRESENT: RRR, +S1, +S2 Pulses: PRESENT: normal carotid pulses Vascular exam: PRESENT: normal capillary refill GI/Abdominal exam: PRESENT: normal bowel sounds, soft. ABSENT: distended, guarding, rebound, tenderness Extremities exam: ABSENT: clubbing, pedal edema Musculoskeletal exam: PRESENT: normal inspection. ABSENT: deformity Neurological exam: PRESENT: awake, oriented to person, oriented to situation Psychiatric exam: PRESENT: flat affect Skin exam: PRESENT: dry, warm Results Laboratory Results: 11/24/19 06:24 11/27/19 05:07 11/27/19 05:07 Sodium 141.1 Potassium 3.3 L Chloride 110 H Carbon Dioxide 23 Anion Gap 8 BUN 34 H Creatinine 2.07 H Est GFR ( Amer) 38 L Glucose 186 H Calcium 8.2 L Impressions: Chest X-Ray 11/19/19 23:08 IMPRESSION: Negative chest copyright 2011 [email or web address]- All Rights Reserved Head MRI 11/20/19 00:00 IMPRESSION: No acute findings. 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 Carotid Doppler Study 11/22/19 00:00 IMPRESSION: NO HEMODYNAMICALLY SIGNIFICANT STENOSIS. Head CT 11/24/19 00:00 IMPRESSION: 1. No intracranial hemorrhage or mass lesion. 2. Diffuse global volume loss with old infarct in the right cerebellum, right occipital lobe and in the basal ganglion bilaterally. These were better seen on the previous MRI. No acute process. Assessment and Plan - Diagnosis (1) Acute on chronic kidney failure Qualifiers: Acute renal failure type: with acute tubular necrosis Chronic kidney disease stage: stage 3 (moderate) Qualified Code(s): N17.0 - Acute kidney failure with tubular necrosis; N18.3 - Chronic kidney disease, stage 3 (moderate) Is this a current diagnosis for this admission?: Yes Plan: Resolved. Creatinine back to baseline. (2) Ataxia Is this a current diagnosis for this admission?: Yes (3) Diabetes mellitus type 2 in obese Is this a current diagnosis for this admission?: Yes Plan: Blood sugars have been very well controlled (4) Essential hypertension Is this a current diagnosis for this admission?: Yes Plan: Blood pressure has been elevated so I increased his Cozaar and have switched his metoprolol to Coreg (5) Essential tremor Is this a current diagnosis for this admission?: Yes Plan: This is resolved, I think the tremor we saw was probably part of his enc ephalopathy (6) Hospital psychosis Is this a current diagnosis for this admission?: Yes Plan: Now resolved. He is out of restraints and off of any sedating medications (7) Unable to ambulate Is this a current diagnosis for this admission?: Yes Plan: Plan for residential at discharge - Time Time Spent with patient: 15-24 minutes
[2019-11-27] MEDS: ATORVASTATIN CALCIUM 40 MG TABLET PO SCH (22:02)
[2019-11-28] MEDS: HEPARIN SOD (PORCINE) 5,000 UNIT/ML 1 ML VIAL SUBCUT SCH ×3 (05:29→22:23)
[2019-11-28 06:27] LABS: ANION GAP 8 (5-19); BLOOD UREA NITROGEN 32 mg/dL (7-20); CALCIUM 8.2 mg/dL (8.4-10.2); CARBON DIOXIDE 22 mmol/L (22-30); CHLORIDE 107 mmol/L (98-107); GLUCOSE 152 mg/dL (75-110); POTASSIUM 3.2 mmol/L (3.6-5.0)
[2019-11-28] MEDS: AMLODIPINE BESYLATE 10 MG TABLET PO SCH (09:04)
[2019-11-28] MEDS: ASPIRIN 81 MG TABLET, ENT COATED PO SCH (09:04)
[2019-11-28] MEDS: INSULIN LISPRO 100 UNIT/ML 3 ML VIAL SUBCUT SCH ×4 (09:04→22:24)
[2019-11-28] MEDS: PREGABALIN 50 MG CAPSULE PO SCH ×2 (09:05→17:06)
[2019-11-28] MEDS: CARVEDILOL 12.5 MG TABLET PO SCH ×2 (09:05→22:23)
[2019-11-28] MEDS: FAMOTIDINE 20 MG TABLET PO SCH (09:05)
[2019-11-28] MEDS: LOSARTAN POTASSIUM 50 MG TABLET PO SCH (09:05)
--- NOTE | 2019-11-28 14:55 | PDOC PROGRESS REPORT ---
Subjective Progress Note for:: 11/28/19 Subjective:: No adverse events overnight. Status continues to improve. He apparently still thinks he is at the [facility]. That is what he keeps telling everyone. He has been very pleasant and cooperative. Vital signs were stable. He ate all of his breakfast this morning and said it was very good. He had a very large bowel movement and seemed to be very excited about it. Reason For Visit: ISCHEMIC STROKE,ATAXIA,ACUTE KIDNEY INJURY,DIABETE Physical Exam Vital Signs: Temp Pulse Resp BP Pulse Ox 98.2 F 78 19 153/52 H 98 11/28/19 07:19 11/28/19 08:00 11/28/19 08:00 11/28/19 08:00 11/28/19 08:00 Intake & Output 11/27/19 11/28/19 11/29/19 06:59 06:59 06:59 Intake Total 938 1080 240 Output Total 250 Balance 938 830 240 Weight 100.8 kg 103.7 kg General appearance: PRESENT: no acute distress, cooperative, disheveled Respiratory exam: PRESENT: clear to auscultation leroy, symmetrical, unlabored. ABSENT: accessory muscle use, chest wall tenderness, crackles, prolonged expiratory phas, rhonchi, tachypnea, wheezes Cardiovascular exam: PRESENT: RRR, +S1, +S2 Pulses: PRESENT: normal carotid pulses Vascular exam: PRESENT: normal capillary refill GI/Abdominal exam: PRESENT: normal bowel sounds, soft. ABSENT: distended, guarding, rebound, tenderness Extremities exam: ABSENT: clubbing, pedal edema Musculoskeletal exam: PRESENT: normal inspection. ABSENT: deformity Neurological exam: PRESENT: awake, oriented to person, oriented to situation Psychiatric exam: PRESENT: Appropriate affect Skin exam: PRESENT: dry, warm Results Laboratory Results: 11/24/19 06:24 11/28/19 05:33 11/28/19 05:33 Sodium 136.7 L Potassium 3.2 L Chloride 107 Carbon Dioxide 22 Anion Gap 8 BUN 32 H Creatinine 2.15 H Est GFR ( Amer) 37 L Glucose 152 H Calcium 8.2 L Impressions: Chest X-Ray 11/19/19 23:08 IMPRESSION: Negative chest copyright 2011 [employer]- All Rights Reserved Head MRI 11/20/19 00:00 IMPRESSION: No acute findings. 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 Carotid Doppler Study 11/22/19 00:00 IMPRESSION: NO HEMODYNAMICALLY SIGNIFICANT STENOSIS. Head CT 11/24/19 00:00 IMPRESSION: 1. No intracranial hemorrhage or mass lesion. 2. Diffuse global volume loss with old infarct in the right cerebellum, right occipital lobe and in the basal ganglion bilaterally. These were better seen on the previous MRI. No acute process. Assessment and Plan - Diagnosis (1) Acute on chronic kidney failure Qualifiers: Acute renal failure type: with acute tubular necrosis Chronic kidney disease stage: stage 3 (moderate) Qualified Code(s): N17.0 - Acute kidney failure with tubular necrosis; N18.3 - Chronic kidney disease, stage 3 (moderate) Is this a current diagnosis for this admission?: Yes Plan: Resolved. Creatinine back to baseline. We are watching his trend because he does tend to fluctuate some. Encouraging oral fluids. (2) Ataxia Is this a current diagnosis for this admission?: Yes (3) Diabetes mellitus type 2 in obese Is this a current diagnosis for this admission?: Yes Plan: Blood sugars have been very well controlled (4) Essential hypertension Is this a current diagnosis for this admission?: Yes Plan: Blood pressure has been elevated so I increased his Cozaar and have switched his metoprolol to Coreg, control improving but still not optimal (5) Essential tremor Is this a current diagnosis for this admission?: Yes Plan: This is resolved, I think the tremor we saw was probably part of his encephalopathy (6) Hospital psychosis Is this a current diagnosis for this admission?: Yes Plan: Now resolved. He is out of restraints and off of any sedating medications (7) Unable to ambulate Is this a current diagnosis for this admission?: Yes Plan: Plan for nursing home at discharge. He has been able to walk some with physical therapy but not very far. - Time Time Spent with patient: 15-24 minutes
[2019-11-28] MEDS: ATORVASTATIN CALCIUM 40 MG TABLET PO SCH (22:23)
[2019-11-29] MEDS: HEPARIN SOD (PORCINE) 5,000 UNIT/ML 1 ML VIAL SUBCUT SCH ×2 (06:33→13:15)
[2019-11-29 06:43] LABS: ANION GAP 9 (5-19); BLOOD UREA NITROGEN 27 mg/dL (7-20); CALCIUM 8.1 mg/dL (8.4-10.2); CARBON DIOXIDE 21 mmol/L (22-30); CHLORIDE 106 mmol/L (98-107); GLUCOSE 181 mg/dL (75-110); POTASSIUM 3.3 mmol/L (3.6-5.0)
[2019-11-29] MEDS: INSULIN LISPRO 100 UNIT/ML 3 ML VIAL SUBCUT SCH ×2 (08:21→12:36)
[2019-11-29] MEDS: PREGABALIN 50 MG CAPSULE PO SCH (09:02)
[2019-11-29] MEDS: AMLODIPINE BESYLATE 10 MG TABLET PO SCH (09:02)
[2019-11-29] MEDS: FAMOTIDINE 20 MG TABLET PO SCH (09:02)
[2019-11-29] MEDS: LOSARTAN POTASSIUM 50 MG TABLET PO SCH (09:02)
[2019-11-29] MEDS: ASPIRIN 81 MG TABLET, ENT COATED PO SCH (09:02)
[2019-11-29] MEDS: CARVEDILOL 12.5 MG TABLET PO SCH (09:02)
--- NOTE | 2019-11-29 15:00 | PDOC TRANSFER SUMMARY ---
Impression - Admit/DC Date/PCP Admission Date/Primary Care Provider: 11/20/19 07:29 [facility] Discharge Date: 11/29/19 - Discharge Diagnosis (1) Acute on chronic kidney failure Is this a current diagnosis for this admission?: Yes (2) Ataxia Is this a current diagnosis for this admission?: Yes (3) Diabetes mellitus type 2 in obese Is this a current diagnosis for this admission?: Yes (4) Essential hypertension Is this a current diagnosis for this admission?: Yes (5) Essential tremor Is this a current diagnosis for this admission?: Yes (6) Hospital psychosis Is this a current diagnosis for this admission?: Yes (7) Unable to ambulate Is this a current diagnosis for this admission?: Yes - Additional Information Resuscitation Status: Do Not Resuscitate Discharge Diet: Cardiac, Diabetic Discharge Activity: Supervised Activity [facility] [[facility] - Follow up as needed Home Medications: Amlodipine Besylate [Norvasc 10 mg Tablet] 10 mg PO DAILY tablet 11/29/19 Aspirin [Ecotrin 81 mg EC Tablet] 81 mg PO DAILY tabec 11/29/19 Atorvastatin Calcium [Lipitor 40 mg Tablet] 40 mg PO QHS tablet 11/29/19 Carvedilol [Coreg 12.5 mg Tablet] 12.5 mg PO Q12 tablet 11/29/19 Insulin Glargine,Hum.rec.anlog [Lantus Insulin 100 Unit/1 ml 10 ml] 10 unit SUBCUT DAILY #0 11/29/19 Pregabalin [Lyrica 50 mg Capsule] 50 mg PO BID capsule 11/29/19 History of Present Illiness History of Present Illness: MINAL ROBERT JR is a 74 year old male who is a poor historian. He states he has a past medical history of hypertension, diabetes and increased cholesterol. He reports that on Thursday he had an overwhelming sense of poor balance and weakness. He went to bed. For the next 3 to 4 days he did not get out of bed. He would urinate in the bed. He was not eating or drinking much. His finally brought him to the hospital last night. His BUN and creatinine were elevated at 57 and 3.85. His AST was also slightly elevated. Despite sebas ng diabetic his glucose was only 60. CT scan of the head without contrast was negative. In the emergency room evaluation revealed a chronic tremor but when attempting to ambulate the patient consistently fell onto his left side. An MRI has been ordered. The patient will be admitted to the hospitalist service. He will be further assessed for stroke. He has no history of neurodegenerative disease we are aware of. He will be on telemetry. He will have Accu-Cheks regularly. He will be on a diabetic/cardiac diet. He reports to this provider that he does not feel his is able to adequately take care of him at home. Hospital Course Hospital Course: There was a concern that this man had had yet another stroke, but imaging did not reveal any new stroke. He has had multiple prior infarcts, and is possible that he had some ischemia and an area of prior infarct. His blood pressure was initially difficult to control but we were able to finally get that fairly well controlled. His blood sugars were pretty well controlled most the time he was here. He got pretty hostile at one point, probably because he got confused, and had to be in restraints for couple of days. He was also given some medication to help reduce his outburst. After couple of days, we were able to take him off of all mood altering medications and take him out of restraints. He has been clear of restraints and sedating medications for several days and has been very pleasant and cooperative. He had some worsening of his chronic kidney disease, but his creatinine is now back to his baseline. He was very weak initially, but he has improved somewhat with physical therapy. Today was probably his best day and he was able to walk 20 feet with a walker. At times he has thought he was at the [facility], but when we have redirected him he has not acted particularly troubled. Placement was sought at a senior care facility for rehab. His labs and exam are reassuring and he was discharged today in stable condition. Physical Exam Vital Signs: Temp Pulse Resp BP Pulse Ox 98.5 F 89 18 117/59 L 95 11/29/19 11:13 11/29/19 14:00 11/29/19 12:00 11/29/19 12:00 11/29/19 12:00 Intake & Output 11/28/19 11/29/19 11/30/19 06:59 06:59 06:59 Intake Total 1080 1950 500 Output Total 250 450 Balance 830 1500 500 Weight 103.7 kg 103.4 kg General appearance: PRESENT: no acute distress, cooperative, disheveled Respiratory exam: PRESENT: clear to auscultation leroy, symmetrical, unlabored. ABSENT: accessory muscle use, chest wall tenderness, crackles, prolonged expiratory phas, rhonchi, tachypnea, wheezes Cardiovascular exam: PRESENT: RRR, +S1, +S2 Pulses: PRESENT: normal carotid pulses Vascular exam: PRESENT: normal capillary refill GI/Abdominal exam: PRESENT: normal bowel sounds, soft. ABSENT: distended, guarding, rebound, tenderness Extremities exam: ABSENT: clubbing, pedal edema Musculoskeletal exam: PRESENT: normal inspection. ABSENT: deformity Neurological exam: PRESENT: awake, oriented to person, oriented to situation Psychiatric exam: PRESENT: Appropriate affect Skin exam: PRESENT: dry, warm Results Laboratory Results: WBC 8.2 10^3/uL (4.0-10.5) 11/24/19 06:24 RBC 4.23 10^6/uL (4.35-5.55) L 11/24/19 06:24 Hgb 12.9 g/dL (13.5-17.0) L 11/24/19 06:24 Hct 36.8 % (37.9-51.0) L 11/24/19 06:24 MCV 87 fl (80-97) 11/24/19 06:24 MCH 30.5 pg (27.0-33.4) 11/24/19 06:24 MCHC 35.1 g/dL (32.0-36.0) 11/24/19 06:24 RDW 14.2 % (11.5-14.0) H 11/24/19 06:24 Plt Count 166 10^3/uL (150-450) 11/24/19 06:24 Lymph % (Auto) 27.9 % (13-45) 11/21/19 05:23 [place] % (Auto) 7.0 % (3-13) 11/21/19 05:23 Eos % (Auto) 8.0 % (0-6) H 11/21/19 05:23 Baso % (Auto) 0.9 % (0-2) 11/21/19 05:23 Absolute Neuts (auto) 3.8 10^3/uL (1.7-8.2) 11/21/19 05:23 Absolute Lymphs (auto) 1.9 10^3/uL (0.5-4.7) 11/21/19 05:23 Absolute Monos (auto) 0.5 10^3/uL (0.1-1.4) 11/21/19 05:23 Absolute Eos (auto) 0.5 10^3/uL (0.0-0.6) 11/21/19 05:23 Absolute Basos (auto) 0.1 10^3/uL (0.0-0.2) 11/21/19 05:23 Seg Neutrophils % 56.2 % (42-78) 11/21/19 05:23 PT 14.4 SEC (11.4-15.4) 11/19/19 23:39 INR 1.11 11/19/19 23:39 VBG pH 7.30 (7.30-7.42) 11/20/19 00:10 VBG pCO2 43.8 mmHg (35-63) 11/20/19 00:10 VBG HCO3 20.9 mmol/L (20-32) 11/20/19 00:10 VBG Base Excess -5.4 mmol/L 11/20/19 00:10 Sodium 135.6 mmol/L (137-145) L 11/29/19 05:52 Potassium 3.3 mmol/L (3.6-5.0) L 11/29/19 05:52 Chloride 106 mmol/L (98-107) 11/29/19 05:52 Carbon Dioxide 21 mmol/L (22-30) L 11/29/19 05:52 Anion Gap 9 (5-19) 11/29/19 05:52 BUN 27 mg/dL (7-20) H 11/29/19 05:52 Creatinine 2.08 mg/dL (0.52-1.25) H 11/29/19 05:52 Est GFR ( Amer) 38 (>60) L 11/29/19 05:52 Est GFR (MDRD) Non-Af 32 (>60) L 11/29/19 05:52 Glucose 181 mg/dL (75-110) H 11/29/19 05:52 POC Glucose 177 mg/dL (70-110) H 11/29/19 11:13 Hemoglobin A1c % 5.7 % (4.7-6.0) 11/21/19 05:23 Lactic Acid 0.5 mmol/L (0.7-2.1) L 11/20/19 06:34 Calcium 8.1 mg/dL (8.4-10.2) L 11/29/19 05:52 Phosphorus 3.3 mg/dL (2.5-4.5) 11/24/19 06:24 Magnesium 1.5 mg/dL (1.6-2.3) L 11/24/19 06:24 Total Bilirubin 0.5 mg/dL (0.2-1.3) 11/19/19 23:39 Direct Bilirubin 0.0 mg/dL (0.0-0.4) 11/19/19 23:39 Neonat Total Bilirubin Not Reportable 11/19/19 23:39 Neonat Direct Bilirubin Not Reportable 11/19/19 23:39 Neonat Indirect Bili Not Reportable 11/19/19 23:39 AST 76 U/L (17-59) H 11/19/19 23:39 ALT 33 U/L (<50) 11/19/19 23:39 Alkaline Phosphatase 68 U/L (38-126) 11/19/19 23:39 Total Protein 5.7 g/dL (6.3-8.2) L 11/19/19 23:39 Albumin 3.4 g/dL (3.5-5.0) L 11/24/19 06:24 Triglycerides 140 mg/dL (<150) 11/21/19 05:23 Cholesterol 154.58 mg/dL (0-200) 11/21/19 05:23 LDL Cholesterol Direct 99 mg/dL (<100) 11/21/19 05:23 VLDL Cholesterol 28.0 mg/dL (10-31) 11/21/19 05:23 HDL Cholesterol 37 mg/dL (>40) L 11/21/19 05:23 Urine Color YELLOW 11/21/19 13:57 Urine Appearance CLEAR 11/21/19 13:57 Urine pH 5.0 (5.0-9.0) 11/21/19 13:57 Ur Specific [place] 1.012 11/21/19 13:57 Urine Protein 100 mg/dL (NEGATIVE) H 11/21/19 13:57 Urine Glucose (UA) NEGATIVE mg/dL (NEGATIVE) 11/21/19 13:57 Urine Ketones TRACE mg/dL (NEGATIVE) H 11/21/19 13:57 Urine Blood MODERATE (NEGATIVE) H 11/21/19 13:57 Urine Nitrite NEGATIVE (NEGATIVE) 11/21/19 13:57 Urine Nitrite (Reflex) NEGATIVE (NEGATIVE) 11/20/19 05:05 Urine Bilirubin NEGATIVE (NEGATIVE) 11/21/19 13:57 Urine Urobilinogen NEGATIVE mg/dL (<2.0) 11/21/19 13:57 Ur Leukocyte Esterase NEGATIVE (NEGATIVE) 11/21/19 13:57 Leukocyte Esterase Rfl NEGATIVE (NEGATIVE) 11/20/19 05:05 Urine WBC (Auto) 2 /HPF 11/21/19 13:57 Urine RBC (Auto) 166 /HPF 11/21/19 13:57 U Hyaline Cast (Auto) 15 /LPF 11/20/19 05:05 Urine WBC (Reflex) 1 /HPF 11/20/19 05:05 Squamous Epi Cells Auto <1 /HPF 11/21/19 13:57 Urine Mucus (Auto) RARE /LPF 11/21/19 13:57 Urine Ascorbic Acid NEGATIVE (NEGATIVE) 11/21/19 13:57 COVID-19 Source NASOPHARYNGEAL 11/22/19 16:00 COVID-19 (CHRISTINE) NOT DETECTED 11/22/19 16:00 Impressions: Head CT 11/19/19 23:07 IMPRESSION: Age-appropriate atrophy with minor small vessel ischemic change TECHNICAL DOCUMENTATION: Quality ID # 436: Final reports with documentation of one or more dose reduction techniques (e.g., Automated exposure control, adjustment of the mA and/or kV according to patient size, use of iterative reconstruction technique) copyright 2010 [employer]- All Rights Reserved Chest X-Ray 11/19/19 23:08 IMPRESSION: Negative chest copyright 2010 [employer]- All Rights Reserved Head MRI 11/20/19 00:00 IMPRESSION: No acute findings. 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 Carotid Doppler Study 11/22/19 00:00 IMPRESSION: NO HEMODYNAMICALLY SIGNIFICANT STENOSIS. Head CT 11/24/19 00:00 IMPRESSION: 1. No intracranial hemorrhage or mass lesion. 2. Diffuse global volume loss with old infarct in the right cerebellum, right occipital lobe and in the basal ganglion bilaterally. These were better seen on the previous MRI. No acute process. Plan Time Spent: Greater than 30 Minutes Stroke Is this a Stroke Patient?: No Acute Heart Failure - Is this a Heart Failure Patient?: No
[2019-11-29 15:48] VITALS: BP 141/48
== END 2019-11-29 16:28 | DRG 56 ==
LOC: ER 22:47 → EH 11-20 07:29 → 3S 11-20 08:39
PROVIDERS: ADMIT Hospitalist; ATTEND Family Medicine
DX: I69.393 Ataxia following cerebral infarction (principal); N18.6 End stage renal disease; N17.0 Acute kidney failure with tubular necrosis; E11.649 Type 2 diabetes mellitus with hypoglycemia without coma; F29 Unspecified psychosis not due to a substance or known physiological condition; E11.22 Type 2 diabetes mellitus with diabetic chronic kidney disease; D64.9 Anemia, unspecified; I12.9 Hypertensive chronic kidney disease with stage 1 through stage 4 chronic kidney disease, or unspecified chronic kidney disease; G25.0 Essential tremor; Z66 Do not resuscitate; E78.5 Hyperlipidemia, unspecified; M19.90 Unspecified osteoarthritis, unspecified site; M54.9 Dorsalgia, unspecified; E66.9 Obesity, unspecified; R53.1 Weakness; Z96.653 Presence of artificial knee joint, bilateral; Z20.828 Contact with and (suspected) exposure to other viral communicable diseases; Z79.82 Long term (current) use of aspirin; Z79.4 Long term (current) use of insulin; Z79.899 Other long term (current) drug therapy; Z78.1 Physical restraint status; Z87.891 Personal history of nicotine dependence; Z83.3 Family history of diabetes mellitus; Z68.32 Body mass index [BMI] 32.0-32.9, adult
CPT/HCPCS: 36415; 51701; 70450; 70551; 71045; 80048; 80053; 80061; 80069; 81001; 82803; 82962; 83036; 83605; 83735; 85025; 85027; 85610; 87040; 87635; 93880; 96361; 96374; 99285; J0360; J1630; J1644; J1815; J1940; J2060; J3490; J7030; J7040

== ENCOUNTER 2020-04-13 19:29 | Inpatient (IN) | payer OTHER, MEDICARE, BC ==
--- NOTE | 2020-04-13 19:51 | ER Document Report ---
ED Neuro Symptoms/Deficit - General Stated Complaint: ALTERED MENTAL STATUS Time Seen by Provider: 04/13/20 19:31 Primary Care Provider: TARIQ MAC MD [Primary Care Provider] - Follow up as needed TRAVEL OUTSIDE OF THE [place] IN LAST 30 DAYS: No - HPI Notes: Patient is a 74-year-old male with a past medical history previous CVA who presents with stroke like symptoms. Patient's is in the room and helps provide the history. She states that he was doing well today and cleaning around the house. His last known well was originally reported by EMS to be 6pm. However, his states that he actually went to go lay down around 3:30 PM and that is the last time she saw him normal. Last known well is 3:30 PM. She states that she then went into the bathroom and found him on the ground around 6 PM. Patient was alert upon arrival but was aphasic. EMS noted that he had a slight left facial droop. On my initial evaluation, his NIH was 4. Patient is outside the TPA window as his symptoms began more than 4.5 hours ago. On reassessment, patient is now able to recite the month and the president. He is improving. His states that he has had numerous strokes. She does not think he is ever received TPA. She does not think he has ever had an intracranial hemorrhage. He has not had any recent surgeries. - Related Data Allergies/Adverse Reactions: No Known Allergies Allergy (Verified 05/10/19 07:59) Past Medical History - General Information source: Patient, Relative, Emergency Med Personnel - Social History Smoking Status: Unknown if Ever Smoked Family History: Reviewed & Not Pertinent, CAD, DM, Other - Diverticulitis - Past Medical History Cardiac Medical History: Reports: Hx Hypercholesterolemia, Hx Hypertension Denies: Hx Atrial Fibrillation, Hx Congestive Heart Failure, Hx Coronary Artery Disease, Hx Heart Attack Pulmonary Medical History: Denies: Hx Asthma, Hx COPD Neurological Medical History: Denies: Hx Cerebrovascular Accident, Hx Seizures Endocrine Medical History: Reports: Hx Diabetes Mellitus Type 1, Hx Diabetes Mellitus Type 2 - Insulin-dependent Renal/ Medical History: Denies: Hx End Stage Renal Disease GI Medical History: Denies: Hx Gastroesophageal Reflux Disease, Hx Hepatitis, Hx Hiatal Hernia, Hx Ulcer Musculoskeletal Medical History: Reports Hx Arthritis Psychiatric Medical History: Denies: Hx Depression Infectious Medical History: Denies: Hx Hepatitis Past Surgical History: Reports: Hx Cholecystectomy, Hx Orthopedic Surgery - R SHOULDER X2, bilateral total knee arthroplasty, back surgery, Hx Tonsillectomy. Denies: Hx Open Heart Surgery, Hx Pacemaker - Immunizations Hx Diphtheria, Pertussis, Tetanus Vaccination: Yes Hx Pneumococcal Vaccination: 07/06/04 Review of Systems - Review of Systems Notes: CONSTITUTIONAL: No fever, fatigue or weight loss. SKIN: No rash. ENDOCRINE: No thyroid problems. No polyuria or polydipsia. CARDIOVASCULAR: No chest pain or edema. RESPIRATORY: No cough, shortness of breath, congestion, or wheezing. GASTROINTESTINAL: No abdominal pain, nausea, vomiting GENITOURINARY: No dysuria. MUSCULOSKELETAL: No joint pain or swelling. LYMPHATIC: No swollen glands. NEUROLOGIC: No seizures. No headache. Positive for difficulty speaking and left facial droop. HEMATOLOGIC: No unusual bruising or bleeding. Physical Exam - Notes Notes: VITAL SIGNS: Hypertensive GENERAL: Non-toxic appearance. HEAD: Normal with no signs of head trauma. EYES: EOMI, conjunctiva normal, no discharge. EARS: Hearing grossly intact. NOSE: Normal. NECK: Normal range of motion, no tenderness, supple, no lymphadenopathy, No adenopathy, no JVD. CHEST: Clear breath sounds bilaterally. No wheezes, rales, or rhonchi. CARDIAC: Regular rate and rhythm. S1 and S2, without murmurs, gallops, or rubs. VASCULAR: No Edema. ABDOMEN: Normal and soft. LYMPATHTIC: No lymphadenopathy noted. NEUROLOGICAL: Alert. Oriented to self. Aphasia present. Drift on the right lower extremity. NIH is 4. PSYCHIATRIC: Normal Affect SKIN: Normal appearance with no rashes or lesions. Course - Re-evaluation Re-evalutation: 04/13/20 20:41 Initially, I was told that patient's last known well was 6 PM so I did call [facility] for a stroke alert. I then learned that his actual last known well was 3:30 PM before he took a nap. Patient is outside the TPA window. Stroke alert canceled. He is also improving as he is now able to state the president and where he is. We will obtain the work-up. I did cancel the CTA as patient has some kidney injury. He also had a recent normal carotid Doppler. On reassessment, patient's NIH is 2 for slight residual aphasia and slight left facial droop. Discussed with the hospitalist and he stated we would be able to keep him in our facility for MRI and monitoring. I also discussed this with the and the patient and they are agreeable. Patient has had some hypertension, but I am allowing permissive hypertension within the parameters due to the likely ischemic stroke. 04/14/20 00:21 04/14/20 00:24 04/14/20 00:25 - Laboratory Result Diagrams: 04/13/20 20:26 04/13/20 20:26 - Diagnostic Test Radiology reviewed: Image reviewed, Reports reviewed - EKG Interpretation by Me EKG shows normal: Sinus rhythm Rate: Tachycardia When compared to previous EKG there are: Previous EKG unavailable Additional EKG results interpreted by me: 04/13/20 21:19 EKG interpreted by me. Sinus tachycardia at a rate of 104. QTc 484. No acute ST changes. No previous EKG available for comparison. ED NIH Stroke Scale - NIH Stroke Scale When completed:: Protocol *: 1. NIH scale should be completed with appropriate accompanying assessment tools. *: 2. The NIH should reflect what the patient is capable of doing and should not be coached by the clinician. 1a. Level of Consciousness: 0=Alert;keenly responsive -: 1=Drowsy -: 2=Obtunded -: 3=Coma/unresponsive or reflex to noxious stimuli. 1a. Responses: 0 1b. Orientation Questions: a. What month is it? -: b. How old are you? -: 0=Answers both questions correctly. -: 1=Answers one question correctly or patient is intubated or has orotracheal trauma. -: 2=Answers neither question correctly. 1b. Responses: 1 1c. Response to commands: a. Open and close eyes? -: b. Viticulture Teacher and release hand? -: Credit is given despite weakness. Demonstration of task is permitted. Substitute command if hands cannot be used. -: 0=Performs both tasks correctly -: 1=Performs one task correctly -: 2=Performs neither task correctly 1c. Responses: 0 2. Gaze: Establish eye contact and instruct patient to "Follow my finger" -: 0=Normal -: 1=Partial gaze palsy. Gaze is abnormal in one or both eyes, but where forced deviation or total gaze paresis is not present. -: 2=Forced deviation or total gaze paresis. 2. Responses: 0 3. Visual Justice: Sees fingers in all four quadrants. -: 0=No visual loss. -: 1=Partial hemianopsia. -: 2=Complete hemianopsia. -: 3=Bilateral hemianopsia (including Cortical blindness) 3. Responses: 0 4. Facial Movement: Instruct patient to: -: a. Show me your teeth -: b. Raise your eyebrows -: c. Close your eyes -: d. Smile -: 0=Normal symmetrical movement -: 1=Minor paralysis (flattened nasolabial fold, asymmetry on smiling). -: 2=Partial paralysis (total or near total paralysis of lower face). -: 3=Complete paralysis of upper and lower face 4. Responses: 1 5. Motor functions (left arm): Alternate sides and extend each arm with palms down (90 degrees if sitting or 45 degrees for supine). -: 0=No drift;limb holds for full 10 seconds. -: 1=Drift; limb holds but drifts down before full 10 seconds, but does not hit bed. -: 2=Some effort against gravity; limb cannot get to or maintain position. -: 3=No effort against gravity; limb falls. -: 4=No movement. -: UN=Amputation, joint fusion, explain in comments. 5. Responses (left arm): 0 5. Motor Functions (right arm): Alternate sides and extend each arm with palms down (90 degrees if sitting or 45 degrees for supine). -: 0=No drift;limb holds for full 10 seconds. -: 1=Drift; limb holds but drifts down before full 10 seconds, but does not hit bed. -: 2=Some effort against gravity; limb cannot get to or maintain position. -: 3=No effort against gravity; limb falls. -: 4=No movement. -: UN=Amputation, joint fusion, explain in comments. 5. Responses (right arm): 0 6. Motor Functions (left leg): With patient lying supine, alternate sides and extend each leg (30 degrees always while supine). -: 0=No drift, leg holds position for full 5 seconds -: 1=Drift; leg falls before full 5 seconds but does not hit bed. -: 2=Some effort against gravity, leg falls to bed but some effort against gravity. -: 3=No effort against gravity, leg falls to bed immediately. -: 4=No movement. -: UN=Amputation, joint fusion; explain in comments. 6. Responses (left leg): 0 6. Motor Functions (right leg): With patient lying supine, alternate sides and extend each leg (30 degrees always while supine). -: 0=No drift, leg holds position for full 5 seconds -: 1=Drift; leg falls before full 5 seconds but does not hit bed. -: 2=Some effort against gravity, leg falls to bed but some effort against gravity. -: 3=No effort against gravity, leg falls to bed immediately. -: 4=No movement. -: UN=Amputation, joint fusion; explain in comments. 6. Responses (right leg): 1 7. Limb Ataxia: With eyes open instruct patient to: -: a. "Touch your finger to your nose". -: b. "Touch your heel to your min" -: 0=Absent -: 1=Present in one limb. -: 2=Present in two limbs. -: UN=Amputation or joint fusion; explain in comments. 7. Responses: 0 8. Sensory: Test sensation using pinprick or noxious stimuli. Test as many body parts as possible. -: 0=Normal;no sensory loss -: 1=Mile to moderate sensory loss (patient feels pin prick but is less sharp on affected side). -: 2=Severe or total sensory loss. 8. Responses: 0 9. Best Language: Instruct patient to: -: a. "Describe what you see in this picture." -: b. "Name the items in this picture." -: c. "Read these sentences." -: 0=No aphasia, normal -: 1=Mild to moderate aphasia. -: 2=Severe aphasia -: 3=Mute, global aphasia, no usable speech or auditory comprehension. 9. Responses: 1 10. Articulation, Dysarthia: Instruct patient to: -: "Read these words" or "Repeat these words" -: 0=Normal -: 1=Mild to moderate; patient may slur some words but can be understood without difficulty. -: 2=Severe; patients speech so slurred as to be unintelligible in the absence of dysphasia. -: UN=Intubated or other physical barrier, explain in comments. 10. Responses: 0 11. Extinction or inattention: 0=No abnormality -: 1= Visual, tactile, auditory, spatial, or personal inattention or extinction to bilateral simulation in one or the sensory modalities. -: 2=Profound ted-inattention or ted-inattention to more than one modality; does not recognize own hand. 11. Responses: 0 Total Score: 4 Discharge - Discharge Clinical Impression: Stroke-like symptoms, Aphasia Hypertension Qualifiers: Hypertension type: unspecified Qualified Code(s): I10 - Essential (primary) hypertension Condition: Serious Disposition: ADMITTED INPATIENT Admitting Provider: Patricia (Hospitalist) Unit Admitted: IMCU Referrals: TARIQ MAC MD [Primary Care Provider] - Follow up as needed
--- NOTE | 2020-04-13 20:04 | RADIOLOGY REPORT (SQ) ---
EXAM DESCRIPTION: CT HEAD WITHOUT IMAGES COMPLETED DATE/TIME: 04/13/2020 7:39 pm REASON FOR STUDY: stroke COMPARISON: 11/24/2019 TECHNIQUE: Axial images acquired through the brain without intravenous contrast. Images reviewed wit h bone, brain and subdural windows. Images stored on PACS. All CT scanners at this facility use dose modulation, iterative reconstruction, and/or weight based d osing when appropriate to reduce radiation dose to as low as reasonably achievable (ALARA). [facility]: Dose Right [facility]: CareDose [facility]: Dose Right [facility]: Teradose 4D [facility]: [employer] RADIATION DOSE: . LIMITATIONS: None. FINDINGS: VENTRICLES: Normal size and contour. CEREBRUM: No hemorrhage. No midline shift. Stable appearance of the white matter with scattered sma ll vessel ischemic changes. No evidence for acute infarction. CEREBELLUM: No masses. No hemorrhage. No alteration of density. No evidence for acute infarction. EXTRA-AXIAL SPACES: No fluid collections. ORBITS AND GLOBE: No intra- or extraconal masses. Normal contour of globe without masses. CALVARIUM: No fracture. PARANASAL SINUSES: No fluid or mucosal thickening. SOFT TISSUES: No mass or hematoma. OTHER: No other significant finding. IMPRESSION: NO ACUTE INTRACRANIAL FINDINGS. EVIDENCE OF ACUTE STROKE: NO. COMMENT: Results called to VIOLET Alanis at 1956 hours. TECHNICAL DOCUMENTATION: JOB ID: [id number] [place]-72 Quality ID # 436: Final reports with documentation of one or more dose reduction techniques (e.g., Au tomated exposure control, adjustment of the mA and/or kV according to patient size, use of iterative reconstruction technique) 2010 [employer]- All Rights Reserved Reading location - IP/workstation name: [email or web address]
--- NOTE | 2020-04-13 20:05 | RADIOLOGY REPORT (SQ) ---
EXAM DESCRIPTION: CHEST SINGLE VIEW IMAGES COMPLETED DATE/TIME: 04/13/2020 7:48 pm REASON FOR STUDY: stroke COMPARISON: 11/19/2019 TECHNIQUE: Single frontal radiographic view of the chest acquired. NUMBER OF VIEWS: One view. LIMITATIONS: None. FINDINGS: LUNGS AND PLEURA: No pneumothorax. No consolidation or pleural effusion. MEDIASTINUM AND HILAR STRUCTURES: Similar contour given differences in positioning. HEART AND VASCULAR STRUCTURES: Heart upper limits of normal size. BONES: No acute findings. HARDWARE: None in the chest. OTHER: No other significant finding. IMPRESSION: NO ACUTE FINDINGS. TECHNICAL DOCUMENTATION: JOB ID: [id number] [place]-72 2010 [employer]- All Rights Reserved Reading location - IP/workstation name: [email or web address]
[2020-04-13 20:37] LABS: ABSOLUTE BASOPHILS # (AUTO) 0.1 10^3/uL (0.0-0.2); ABSOLUTE EOSINOPHILS # (AUTO) 0.2 10^3/uL (0.0-0.6); ABSOLUTE MONOCYTES (AUTO) 0.5 10^3/uL (0.1-1.4); ABSOLUTE NEUT (AUTO) 7.9 10^3/uL (1.7-8.2); BASOPHILS % (AUTO) 0.7 % (0-2); EOSINOPHILS % (AUTO) 2.3 % (0-6); HEMATOCRIT 35.7 % (37.9-51.0); HEMOGLOBIN 12.8 g/dL (13.5-17.0); LYMPHOCYTES % (AUTO) 18.9 % (13-45); MEAN CORPUSCULAR HEMOGLOBIN 30.8 pg (27.0-33.4); MEAN CORPUSCULAR HGB CONC 35.9 g/dL (32.0-36.0); MEAN CORPUSCULAR VOLUME 86 fl (80-97); MONOCYTES % (AUTO) 4.3 % (3-13); PLATELET COUNT 200 10^3/uL (150-450); RED BLOOD COUNT 4.15 10^6/uL (4.35-5.55); RED CELL DISTRIBUTION WIDTH 14.5 % (11.5-14.0); SEGMENTED NEUTROPHILS % (AUTO) 73.8 % (42-78); TOTAL CELLS COUNTED % (AUTO) 100 %; WHITE BLOOD COUNT 10.7 10^3/uL (4.0-10.5)
[2020-04-13 20:42] LABS: PARTIAL THROMBOPLASTIN TIME 31.8 SEC (23.5-35.8)
[2020-04-13 20:50] LABS: INTERNATIONAL RATION (INR) 1.02; PROTHROMBIN TIME 13.6 SEC (11.4-15.4)
[2020-04-13 20:56] LABS: ALBUMIN 3.3 g/dL (3.5-5.0); ALKALINE PHOSPHATASE 61 U/L (38-126); ANION GAP 7 (5-19); ASPARTATE AMINO TRANSFERASE 20 U/L (17-59); BILIRUBIN,DIRECT 0.3 mg/dL (0.0-0.4); BILIRUBIN,TOTAL 0.8 mg/dL (0.2-1.3); BLOOD UREA NITROGEN 14 mg/dL (7-20); CALCIUM 8.1 mg/dL (8.4-10.2); CARBON DIOXIDE 27 mmol/L (22-30); CHLORIDE 106 mmol/L (98-107); CREATINE KINASE 89 U/L (55-170); GLUCOSE 112 mg/dL (75-110); POTASSIUM 3.2 mmol/L (3.6-5.0)
[2020-04-13 21:09] LABS: CREATINE KINASE MB 1.11 ng/mL (<4.55)
[2020-04-13 21:11] LABS: TROPONIN I 0.055 ng/mL
[2020-04-13] MEDS ORDERED: ACETAMINOPHEN 325 MG TABLET PO PRN (23:37)
[2020-04-13] MEDS ORDERED: NORMAL SALINE 1000 ML 1,000 ML IV PRN (23:37)
[2020-04-13] MEDS ORDERED: MAGNESIUM HYDROXIDE SUSP 30 ML UDCUP PO PRN (23:37)
[2020-04-13] MEDS ORDERED: DEXTROSE 50%-WATER 25 GM/50 ML DISP.SYRIN IV PRN ×2 (23:40)
[2020-04-13] MEDS ORDERED: DEXTROSE 40% GEL 15 GM TUBE PO PRN ×2 (23:40)
[2020-04-13] MEDS ORDERED: GLUCAGON,HUMAN RECOMB 1 MG INJ IM PRN (23:40)
[2020-04-13] MEDS ORDERED: POTASSIUM CHLORIDE 10 MEQ TABLET.ER PO ONE (23:41)
[2020-04-13] MEDS ORDERED: HYDROCODONE/ACETAMINOPHEN 10-325 MG TABLET PO PRN (23:46)
--- NOTE | 2020-04-13 23:58 | PDOC H&P ---
History of Present Illness Admission Date/PCP: TARIQ MAC MD Patient complains of: Acute ischemic stroke with hypertension History of Present Illness: MINAL ROBERT JR is a 74 year old male with a history of previous strokes as well as hyperlipidemia, hypertension, chronic kidney failure and diabetes mellitus. He also has chronic arthritis and depression. The patient reports that he has been feeling poorly over the last several days. He noticed his blood pressure was increased. He also had an occasional headache. His states that he went to lie down approximately 330. She was unaware that he got up to go to the bathroom. Next thing she knew she went in and found him on the floor. At that time he was not aphasic. He was able to walk to his bed. He then began to get worse. He became aphasic. She did not report any deficit in the extremities but she did feel that there was a facial droop. She then called the neighbor. Because his condition was worsening they called EMS. The patient was brought to the emergency department. On evaluation he was found to be hypertensive and tachycardic. Systolic blood pressures were high 100s to just over 200. Diastolic pressures were less than 90. His heart rate was ranging into the 120s. During his evaluation his speech did improve. Laboratory studies revealed a low potassium at 3.2. Electrolytes were otherwise unremarkable. His creatinine is elevated at 1.71 but this is in fact better than during his last admission in November. His white blood cell count was only 10.7 with a hemoglobin of 12.8 and a platelet count of 200. CT scan of the head showed no acute events. He just had carotid Dopplers in November and there was no significant positive finding. He will be admitted to the hospitalist service. We will administer medications to slowly improve his blood pressure. We will have physical therapy, Occupational Therapy and speech evaluate the patient. He will be monitored on telemetry. Past Medical History Cardiac Medical History: Reports: Hyperlipidema, Hypertension Denies: Atrial Fibrillation, Congestive Heart Failure, Coronary Artery Disease, Myocardial Infarction Pulmonary Medical History: Denies: Asthma, Chronic Obstructive Pulmonary Disease (COPD) Neurological Medical History: Denies: Seizures Endocrine Medical History: Reports: Diabetes Mellitus Type 2 - Insulin-dependent Renal/ Medical History: Reports: Chronic Kidney Disease Denies: End Stage Renal Disease GI Medical History: Denies: Gastroesophageal Reflux Disease, Hepatitis, Hiatal Hernia Musculoskeltal Medical History: Reports: Arthritis, Other - Chronic back pain Psychiatric Medical History: Reports: Depression, General Anxiety Disorder Hematology: Denies: Anemia, Sickle Cell Disease Past Surgical History Past Surgical History: Reports: Cholecystectomy, Orthopedic Surgery - R SHOULDER X2, bilateral total knee arthroplasty, back surgery, Tonsillectomy Denies: Pacemaker Social History Information Source: Patient, Relative - Patient's , [facility] Records Lives with: Spouse/Significant other Smoking Status: Former Smoker Electronic Cigarette use?: No Frequency of Alcohol Use: None Hx Recreational Drug Use: No Drugs: None Hx Prescription Drug Abuse: No - Advance Directive Resuscitation Status: Do Not Resuscitate Surrogate healthcare decision maker:: The patient's would be the decision maker in the event of his incapacitation Family History Family History: Reviewed & Not Pertinent, CAD, DM, Other - Diverticulitis Parental Family History Reviewed: Yes Children Family History Reviewed: Yes Sibling(s) Family History Reviewed.: NA Medication/Allergy Home Medications: Amlodipine Besylate [Norvasc 10 mg Tablet] 10 mg PO DAILY tablet 11/29/19 Aspirin [Ecotrin 81 mg EC Tablet] 81 mg PO DAILY tabec 11/29/19 Atorvastatin Calcium [Lipitor 40 mg Tablet] 40 mg PO QHS tablet 11/29/19 Carvedilol [Coreg 12.5 mg Tablet] 12.5 mg PO Q12 tablet 11/29/19 Insulin Glargine,Hum.rec.anlog [Lantus Insulin 100 Unit/1 ml 10 ml] 10 unit SUBCUT DAILY #0 11/29/19 Pregabalin [Lyrica 50 mg Capsule] 50 mg PO BID capsule 11/29/19 Allergies/Adverse Reactions: No Known Allergies Allergy (Verified 05/10/19 07:59) Review of Systems All systems: reviewed and no additional remarkable complaints except as stated Constitutional: PRESENT: fatigue, weakness Neurological: PRESENT: other - Very mild aphasia Physical Exam Vital Signs: Temp Pulse Resp BP Pulse Ox 98.6 F 98 16 204/97 H 99 04/13/20 19:35 04/13/20 21:00 04/13/20 21:02 04/13/20 21:02 04/13/20 21:02 Intake & Output 04/12/20 04/13/20 04/14/20 06:59 06:59 06:59 Weight 101.4 kg General appearance: PRESENT: no acute distress, cooperative, well-developed, well-nourished Head exam: PRESENT: atraumatic, normocephalic Eye exam: PRESENT: conjunctiva pink, EOMI, PERRLA. ABSENT: nystagmus, scleral icterus Ear exam: PRESENT: normal external ear exam. ABSENT: bleeding, drainage Mouth exam: PRESENT: moist, tongue midline Neck exam: ABSENT: carotid bruit, JVD, lymphadenopathy, tracheostomy Respiratory exam: PRESENT: clear to auscultation leroy, symmetrical, unlabored. ABSENT: accessory muscle use, prolonged expiratory phas, rales, rhonchi, tachypnea, wheezes Cardiovascular exam: PRESENT: RRR, +S1, +S2. ABSENT: bradycardia, diastolic murmur, irregular rhythm, systolic murmur, tachycardia Pulses: PRESENT: normal radial pulses, normal dorsalis pedis pul GI/Abdominal exam: PRESENT: normal bowel sounds, soft. ABSENT: distended, guarding, tenderness Rectal exam: PRESENT: deferred Gentrourinary exam: ABSENT: indwelling catheter Extremities exam: ABSENT: joint swelling, pedal edema Musculoskeletal exam: PRESENT: normal inspection. ABSENT: deformity, dislocation Neurological exam: PRESENT: alert, awake, oriented to person, oriented to place, oriented to situation, CN II-XII grossly intact, motor sensory deficit - Bilateral symmetric and normal lower extremity strength. Gross sensation int act. 4/5 upper extremity strength. Right hand possibly very slightly weaker than left., aphasic - Still with very limited word finding difficulties. ABSENT: altered Psychiatric exam: PRESENT: flat affect. ABSENT: agitated, anxious Focused psych exam: ABSENT: delusional, paranoid Skin exam: PRESENT: dry, normal color, warm. ABSENT: rash Results Laboratory Results: 04/13/20 20:26 04/13/20 20:26 04/13/20 04/13/20 20:26 20:26 WBC 10.7 H RBC 4.15 L Hgb 12.8 L Hct 35.7 L MCV 86 MCH 30.8 MCHC 35.9 RDW 14.5 H Plt Count 200 Seg Neutrophils % 73.8 Sodium 139.5 Potassium 3.2 L Chloride 106 Carbon Dioxide 27 Anion Gap 7 BUN 14 Creatinine 1.71 H Est GFR ( Amer) 48 L Glucose 112 H Calcium 8.1 L Total Bilirubin 0.8 AST 20 Alkaline Phosphatase 61 Total Protein 6.0 L Albumin 3.3 L 04/13/20 04/13/20 20:26 20:26 Creatine Kinase 89 CK-MB (CK-2) 1.11 Troponin I 0.055 Impressions: Head CT 04/13/20 19:32 IMPRESSION: NO ACUTE INTRACRANIAL FINDINGS. EVIDENCE OF ACUTE STROKE: NO. Chest X-Ray 04/13/20 19:36 IMPRESSION: NO ACUTE FINDINGS. Assessment and Plan - Diagnosis (1) Acute ischemic stroke Is this a current diagnosis for this admission?: Yes Plan: The CT scan was negative but we will obtain an MRI tomorrow. Carotid Dopplers in November were unremarkable therefore we will not repeat the studies. He will be admitted under the stroke protocol to [facility]. We will continue his aspirin therapy at this time. No further anticoagulation currently. He will be monitored on telemetry and PT, OT and speech will evaluate him as well. There is a possibility that his blood pressure triggered these symptoms. Await MRI study to decide conclusively. (2) Aphasia Is this a current diagnosis for this admission?: Yes Plan: Markedly improved. He still has occasional word finding difficulties. This should resolve back to his baseline. Speech therapy will evaluate the patient. (3) Hypertension Qualifiers: Hypertension type: essential hypertension Qualified Code(s): I10 - Essential (primary) hypertension Is this a current diagnosis for this admission?: Yes Plan: Poorly controlled hypertension. We will start treatment by just putting him back on his home medication regimen. We will then decide if adjustments in his medication regimen need to be made. He will have permissive hypertension as we do not want to drop his pressures too quickly. (4) Chronic renal failure, stage 3 (moderate) Qualifiers: Chronic kidney disease stage 3 subtype: stage 3b (GFR 30-44) Qualified Code(s): N18.32 - Chronic kidney disease, stage 3b Is this a current diagnosis for this admission?: Yes Plan: Review of his blood work in fact shows that his renal function is better than when he was in the hospital in November. He will have gentle IV fluids and we will monitor renal function. (5) Hypokalemia Is this a current diagnosis for this admission?: Yes Plan: Supplemental potassium chloride will be administered now and I have ordered a daily dose. We will continue to monitor his electrolytes. (6) Hyperglycemia due to type 2 diabetes mellitus Qualifiers: Diabetes mellitus adjunct faculty for medical terminology insulin use: with care home use Qualified Code(s): E11.65 - Type 2 diabetes mellitus with hyperglycemia; Z79.4 - terminal operations manager (current) use of insulin Is this a current diagnosis for this admission?: Yes Plan: He will be on a diabetic diet. He will have Accu-Cheks with meals and at bedtime. Sliding scale is available. We will also initiate treatment with Lantus and work towards his home dose. (7) Hyperlipidemia Qualifiers: Hyperlipidemia type: unspecified Qualified Code(s): E78.5 - Hyperlipidemia, unspecified Is this a current diagnosis for this admission?: Yes Plan: Continue statin therapy. (8) Depression Qualifiers: Depression Type: unspecified Qualified Code(s): F32.9 - Major depressive disorder, single episode, unspecified Is this a current diagnosis for this admission?: Yes Plan: Possibly related to previous strokes. We will continue the sertraline. He has multiple as needed medications including BuSpar, Seroquel and trazodone. I will limit the choices at this time. I will give a small dose of scheduled BuSpar with trazodone as needed. (9) Chronic pain Qualifiers: Chronic pain type: chronic pain syndrome Qualified Code(s): G89.4 - Chronic pain syndrome Is this a current diagnosis for this admission?: Yes Plan: Patient has multiple joint pains. He is on narcotics daily at home. Await the final medication reconciliation from pharmacy for complete prescribing information. We will utilize IV morphine at this time until further information is available. - Time Time Spent with patient: 35 or more minutes Medications reviewed and adjusted accordingly: Yes Anticipated Discharge Disposition: Home with Home Health Anticipated Discharge Timeframe: within 72 hours - Inpatient Certification Based on my medical assessment, after consideration of the patient's comorbidities, presenting symptoms, or acuity I expect that the services needed warrant INPATIENT care.: Yes I certify that my determination is in accordance with my understanding of Medicare's requirements for reasonable and necessary INPATIENT services [42 CFR 412.3e].: Yes Medical Necessity: Significant Comorbidiites Make Outpatient Treatment Too Risky, Need For IV Fluids, Need For Continuous Telemetry Monitoring, Need for Pain Control Post Hospital Care: D/C or Transfer Summary
--- NOTE | 2020-04-14 00:48 | EKG REPORT ---
SEVERITY:- ABNORMAL ECG - SINUS TACHYCARDIA CONSIDER LEFT VENTRICULAR HYPERTROPHY BORDERLINE PROLONGED QT INTERVAL : Confirmed by: Jil Cantor MD 14-Apr-2020 00:47:50
[2020-04-14] MEDS ORDERED: CARVEDILOL 12.5 MG TABLET PO ONE (01:00)
--- NOTE | 2020-04-14 05:04 | ADVANCED CARE ---
- Diagnosis (1) Acute ischemic stroke Diagnosis Current: Yes (2) Aphasia Diagnosis Current: Yes (3) Hypertension Diagnosis Current: Yes (4) Chronic renal failure, stage 3 (moderate) Diagnosis Current: Yes (5) Hypokalemia Diagnosis Current: Yes (6) Hyperglycemia due to type 2 diabetes mellitus Diagnosis Current: Yes (7) Hyperlipidemia Diagnosis Current: Yes (8) Depression Diagnosis Current: Yes (9) Chronic pain Diagnosis Current: Yes Attendance: Discussion was held at the bedside with the patient and his in the emergency department. Resuscitation Status: Do Not Resuscitate Discussion: We reviewed the patient's last admission. At that time he was DNR. I confirmed that they still wanted the patient to be a DNR. They understand that this does not change our active treatment plan in any way unless there is a catastrophic event. Care Planning Goals: Ensure an appropriate transition in the event of a catastrophic event. Document(s) Completed: None Time Spent: 20 min
[2020-04-14 09:28] LABS: ABSOLUTE BASOPHILS # (AUTO) 0.1 10^3/uL (0.0-0.2); ABSOLUTE EOSINOPHILS # (AUTO) 0.2 10^3/uL (0.0-0.6); ABSOLUTE LYMPHOCYTES (AUTO) 2.6 10^3/uL (0.5-4.7); ABSOLUTE MONOCYTES (AUTO) 0.6 10^3/uL (0.1-1.4); BASOPHILS % (AUTO) 1.4 % (0-2); EOSINOPHILS % (AUTO) 2.9 % (0-6); HEMATOCRIT 36.2 % (37.9-51.0); HEMOGLOBIN 12.8 g/dL (13.5-17.0); MEAN CORPUSCULAR HEMOGLOBIN 30.8 pg (27.0-33.4); MEAN CORPUSCULAR HGB CONC 35.3 g/dL (32.0-36.0); MEAN CORPUSCULAR VOLUME 87 fl (80-97); MONOCYTES % (AUTO) 6.5 % (3-13); PLATELET COUNT 205 10^3/uL (150-450); RED BLOOD COUNT 4.15 10^6/uL (4.35-5.55); RED CELL DISTRIBUTION WIDTH 14.6 % (11.5-14.0); SEGMENTED NEUTROPHILS % (AUTO) 58.2 % (42-78); TOTAL CELLS COUNTED % (AUTO) 100 %; WHITE BLOOD COUNT 8.5 10^3/uL (4.0-10.5)
[2020-04-14 09:44] LABS: ANION GAP 7 (5-19); BLOOD UREA NITROGEN 14 mg/dL (7-20); CARBON DIOXIDE 27 mmol/L (22-30); CHLORIDE 105 mmol/L (98-107); GLUCOSE 101 mg/dL (75-110)
[2020-04-14 09:46] LABS: CALCIUM 8.2 mg/dL (8.4-10.2); POTASSIUM 3.5 mmol/L (3.6-5.0)
[2020-04-14] MEDS ORDERED: CARVEDILOL 12.5 MG TABLET PO SCH ×2 (10:00→22:00)
[2020-04-14] MEDS ORDERED: AMLODIPINE BESYLATE 10 MG TABLET PO SCH (10:00)
[2020-04-14] MEDS ORDERED: INSULIN GLARGINE,HUM.REC.ANLOG 1,000 UNIT/10 ML VIAL SUBCUT SCH (10:00)
[2020-04-14] MEDS: INSULIN LISPRO 100 UNIT/ML 3 ML VIAL SUBCUT SCH ×4 (10:35→22:42)
[2020-04-14] MEDS: ENOXAPARIN SODIUM INJ 40 MG/0.4 ML DISP.SYRIN SUBCUT SCH (10:50)
[2020-04-14] MEDS: PREGABALIN 75 MG CAPSULE PO SCH ×3 (10:50→19:26)
[2020-04-14] MEDS: POTASSIUM CHLORIDE 10 MEQ TABLET.ER PO SCH (10:50)
[2020-04-14] MEDS: SERTRALINE HCL 50 MG TABLET PO SCH (10:50)
--- NOTE | 2020-04-14 12:27 | RADIOLOGY REPORT (SQ) ---
EXAM DESCRIPTION: MRI HEAD WITHOUT IMAGES COMPLETED DATE/TIME: 04/14/2020 11:35 am REASON FOR STUDY: Stroke COMPARISON: 11/20/2019 TECHNIQUE: Multiplanar imaging includes non-contrasted T1, T2, FLAIR, and diffusion with ADC map seq uences. Images stored on PACS. LIMITATIONS: None. FINDINGS: ANATOMY: No anomalies. Normal vascular flow voids. Pituitary fossa normal. CSF SPACES: Atrophy induced prominence of ventricles and CSF spaces. CEREBRUM: Similar High signal intensity lesions scattered throughout the white matter on FLAIR imagin g. No evidence of hemorrhage, mass, or extraaxial fluid collection. POSTERIOR FOSSA: No signal alteration. No hemorrhage. No edema, masses or mass effect. Internal gordo tory canals, cerebello-pontine angles, mastoids normal. DIFFUSION IMAGING: Negative for acute or sub-acute infarction. ORBITS: No masses. Globes normal. PARANASAL SINUSES: No fluid levels. Mucosa normal. OTHER: No other significant finding. IMPRESSION: Negative for acute or sub-acute infarction. EVIDENCE OF ACUTE STROKE: NO. TECHNICAL DOCUMENTATION: JOB ID: [id number] 2010 [employer]- All Rights Reserved Reading location - IP/workstation name: [email or web address]
[2020-04-14] MEDS ORDERED: POTASSIUM CHLORIDE 10 MEQ TABLET.ER PO ONE (15:00)
[2020-04-14] MEDS: AMLODIPINE BESYLATE 10 MG TABLET PO SCH (16:04)
--- NOTE | 2020-04-14 19:28 | PDOC PROGRESS REPORT ---
Subjective Progress Note for:: 04/14/20 Subjective:: NAEO Reason For Visit: ACUTE ISCHEMIC STROKE,HYPERTENSION,DIABETES MELLIT Physical Exam Vital Signs: Temp Pulse Resp BP Pulse Ox 97.6 F 71 23 H 163/72 H 100 04/14/20 16:00 04/14/20 16:00 04/14/20 19:00 04/14/20 18:38 04/14/20 19:00 Intake & Output 04/13/20 04/14/20 04/15/20 06:59 06:59 06:59 Intake Total 147 668 Output Total 225 Balance 147 443 Weight 99.2 kg General appearance: PRESENT: no acute distress, cooperative, obese Head exam: PRESENT: atraumatic Eye exam: ABSENT: scleral icterus Mouth exam: PRESENT: moist Throat exam: ABSENT: post pharyngeal erythema Neck exam: ABSENT: JVD Respiratory exam: PRESENT: clear to auscultation leroy, unlabored Cardiovascular exam: PRESENT: RRR GI/Abdominal exam: PRESENT: normal bowel sounds, soft. ABSENT: tenderness Extremities exam: ABSENT: pedal edema Neurological exam: PRESENT: alert, awake Psychiatric exam: PRESENT: appropriate affect Skin exam: ABSENT: rash Results Laboratory Results: 04/14/20 09:13 04/14/20 18:16 04/13/20 04/13/20 04/14/20 20:26 20:26 09:13 WBC 10.7 H 8.5 RBC 4.15 L 4.15 L Hgb 12.8 L 12.8 L Hct 35.7 L 36.2 L MCV 86 87 MCH 30.8 30.8 MCHC 35.9 35.3 RDW 14.5 H 14.6 H Plt Count 200 205 Seg Neutrophils % 73.8 58.2 Sodium 139.5 Potassium 3.2 L Chloride 106 Carbon Dioxide 27 Anion Gap 7 BUN 14 Creatinine 1.71 H Est GFR ( Amer) 48 L Glucose 112 H Calcium 8.1 L Total Bilirubin 0.8 AST 20 Alkaline Phosphatase 61 Total Protein 6.0 L Albumin 3.3 L 04/14/20 04/14/20 09:13 18:16 WBC RBC Hgb Hct MCV MCH MCHC RDW Plt Count Seg Neutrophils % Sodium 139.4 Potassium 3.5 L 4.2 Chloride 105 Carbon Dioxide 27 Anion Gap 7 BUN 14 Creatinine 1.68 H Est GFR ( Amer) 49 L Glucose 101 Calcium 8.2 L Total Bilirubin AST Alkaline Phosphatase Total Protein Albumin 04/13/20 04/13/20 04/14/20 20:26 20:26 02:15 Creatine Kinase 89 CK-MB (CK-2) 1.11 Troponin I 0.055 0.098 04/14/20 04/14/20 09:13 18:16 Creatine Kinase CK-MB (CK-2) Troponin I 0.103 0.060 Impressions: Head CT 04/13/20 19:32 IMPRESSION: NO ACUTE INTRACRANIAL FINDINGS. EVIDENCE OF ACUTE STROKE: NO. Chest X-Ray 04/13/20 19:36 IMPRESSION: NO ACUTE FINDINGS. Head MRI 04/14/20 07:00 IMPRESSION: Negative for acute or sub-acute infarction. EVIDENCE OF ACUTE STROKE: NO. Assessment and Plan - Diagnosis (1) Aphasia Is this a current diagnosis for this admission?: Yes (2) Chronic renal failure, stage 3 (moderate) Qualifiers: Chronic kidney disease stage 3 subtype: stage 3b (GFR 30-44) Qualified Code(s): N18.32 - Chronic kidney disease, stage 3b Is this a current diagnosis for this admission?: Yes (3) Hyperglycemia due to type 2 diabetes mellitus Qualifiers: Diabetes mellitus shelter insulin use: with terminal operations manager use Qualified Code(s): E11.65 - Type 2 diabetes mellitus with hyperglycemia; Z79.4 - moth exterminator (current) use of insulin Is this a current diagnosis for this admission?: Yes (4) Hyperlipidemia Qualifiers: Hyperlipidemia type: unspecified Qualified Code(s): E78.5 - Hyperlipidemia, unspecified Is this a current diagnosis for this admission?: Yes (5) Hypertension Qualifiers: Hypertension type: essential hypertension Qualified Code(s): I10 - Essential (primary) hypertension Is this a current diagnosis for this admission?: Yes (6) Hypokalemia Is this a current diagnosis for this admission?: Yes (7) Stroke-like symptoms Is this a current diagnosis for this admission?: Yes (8) 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 He has been feeling poorly over the last several days. He noticed his blood pressure was increased. He also had an occasional headache. His states that he went to lie down approximately 330. She was unaware that he got up to go to the bathroom. Next thing she knew she went in and found him on the floor. At that time he was not aphasic. He was able to walk to his bed. He then began to get worse. He became aphasic. She did not report any deficit in the extremities but she did feel that there was a facial droop. She then called EMS. The patient was brought to the emergency department. On evaluation he was found to be hypertensive and tachycardic. Systolic blood pressures were high 100s to just over 200. Diastolic pressures were less than 90. His heart rate was ranging into the 120s. During his evaluation his speech did improve. Laboratory studies revealed a low potassium at 3.2. Electrolytes were otherwise unremarkable. His creatinine is elevated at 1.71 but this is in fact better than during his last admission in November. His white blood cell count was only 10.7 with a hemoglobin of 12.8 and a platelet count of 200. MRI brain showed no acute events. He just had carotid Dopplers in November and there was no significant positive finding. He likely had recrudescence of old CVA symptoms due to uncontrolled hypertension. His home BP medications have been restarted and we will gradually lower BP. He has known DM2, but his glucose here is well controlled despite not getting his home LAntus. Continue SSI. PT/OT/BUSINESS ATTORNEY evaluations pending. Likely discharge home tomorrow. - Time Time Spent with patient: 35 or more minutes Anticipated Discharge Disposition: Home, Self Care Anticipated Discharge Timeframe: within 24 hours
[2020-04-14] MEDS ORDERED: LOSARTAN POTASSIUM 50 MG TABLET PO ONE (20:55)
[2020-04-14] MEDS ORDERED: CARVEDILOL 6.25 MG TABLET ONE (20:57)
[2020-04-14] MEDS ORDERED: ASPIRIN 81 MG TABLET, ENT COATED PO SCH (22:00)
[2020-04-14] MEDS ORDERED: ATORVASTATIN CALCIUM 40 MG TABLET PO SCH (22:00)
[2020-04-14] MEDS ORDERED: BUSPIRONE HCL 10 MG TABLET PO SCH (22:00)
[2020-04-14] MEDS ORDERED: ATORVASTATIN CALCIUM 80 MG TABLET PO SCH (22:00)
[2020-04-15] MEDS ORDERED: INFLUENZA QUAD (6MOS+) 2020-21 VAC 0.5 ML SYR IM ONE (08:00)
[2020-04-15] MEDS: INSULIN LISPRO 100 UNIT/ML 3 ML VIAL SUBCUT SCH ×2 (09:50→13:37)
[2020-04-15] MEDS: PREGABALIN 75 MG CAPSULE PO SCH ×2 (09:56→13:37)
[2020-04-15] MEDS: SERTRALINE HCL 50 MG TABLET PO SCH (09:56)
[2020-04-15] MEDS: AMLODIPINE BESYLATE 10 MG TABLET PO SCH (09:56)
[2020-04-15] MEDS: ENOXAPARIN SODIUM INJ 40 MG/0.4 ML DISP.SYRIN SUBCUT SCH (09:57)
[2020-04-15] MEDS: POTASSIUM CHLORIDE 10 MEQ TABLET.ER PO SCH (09:57)
[2020-04-15] MEDS ORDERED: CARVEDILOL 12.5 MG TABLET PO SCH (10:00)
[2020-04-15 16:01] VITALS: BP 146/62
--- NOTE | 2020-04-15 16:26 | PDOC DISCHARGE SUMMARY ---
Impression - Admit/DC Date/PCP Admission Date/Primary Care Provider: 04/13/20 23:47 TARIQ MAC MD Discharge Date: 04/15/20 - Discharge Diagnosis (1) Aphasia Is this a current diagnosis for this admission?: Yes (2) Chronic renal failure, stage 3 (moderate) Is this a current diagnosis for this admission?: Yes (3) Hyperglycemia due to type 2 diabetes mellitus Is this a current diagnosis for this admission?: Yes (4) Hyperlipidemia Is this a current diagnosis for this admission?: Yes (5) Hypertension Is this a current diagnosis for this admission?: Yes (6) Hypokalemia Is this a current diagnosis for this admission?: Yes (7) Stroke-like symptoms Is this a current diagnosis for this admission?: Yes (8) 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 He has been feeling poorly over the last several days. He noticed his blood pressure was increased. He also had an occasional headache. His states that he went to lie down approximately 330. She was unaware that he got up to go to the bathroom. Next thing she knew she went in and found him on the floor in the bathroom. At that time he was not aphasic and was able to walk to his bed. He then began to become aphasic. She did not report any deficit in the extremities but she did feel that there was a facial droop. She then called EMS. The patient was brought to the emergency department. On evaluation, he was found to be hypertensive and tachycardic. Systolic blood pressures were high 100s to just over 200. His heart rate was ranging into the 120s. Blood sugar upon EMS arrival to their home is unclear, but glucose was only 90 on arrival to the ED. During his evaluation in the ED, his speech became normal. He had no other neurological deficits. Laboratory studies were unremarkable. MRI brain showed no acute changes. He just had carotid dopplers performed in November and there was no significant positive finding at that time. He likely had recrudescence of old CVA symptoms due to either uncontrolled hypertension or hypoglycemia. His symptoms resolved rapidly upon initial examination and have not reoccurred. He was evaluated by PT/OT/COLUMNIST who felt that he had no needs. His home BP regimen has been tweaked and BP is now much better controlled. He has known DM2, but his glucose here is well controlled despite not getting his home Lantus. HbA1c was found to be dangerously low at 5.9% for an elderly, frail man. His A1c goal should be much higher and he is at risk for morbidity from hypoglycemic complications of insulin. His Lantus dose was reduced from 30 to 10 units daily. He should have repeat HbA1c checked again in 3 months. He was advised to follow up with his PCP in 1 week. - Additional Information Resuscitation Status: Do Not Resuscitate Discharge Diet: Cardiac, Diabetic Discharge Activity: Activity As Tolerated Referrals: TARIQ MAC MD [Primary Care Provider] - Follow up as needed Prescriptions: Carvedilol [Coreg] 1 tab PO Q12 #60 tab Losartan Potassium [Cozaar 50 mg Tablet] 50 mg PO QPM #30 tablet Insulin Glargine,Hum.rec.anlog [Lantus Insulin 100 Unit/1 ml 10 ml] 10 unit SUBCUT DAILY #1 unit Atorvastatin Calcium [Lipitor 20 mg Tablet] 20 mg PO QHS #30 tablet Nifedipine [Nifedipine ER] 90 mg PO DAILY #30 tablet.er Home Medications: Hydrocodone/Acetaminophen [[place] 5-325 mg Tablet] 1 tab PO Q6HP PRN 04/14/20 Morphine Sulfate [Morphine Sulfate ER] 30 mg PO Q12 04/14/20 Pregabalin [Lyrica 75 mg Capsule] 75 mg PO TID 04/14/20 Aspirin [Ecotrin 81 mg EC Tablet] 81 mg PO QHS tabec 04/15/20 Atorvastatin Calcium [Lipitor 20 mg Tablet] 20 mg PO QHS #30 tablet 04/15/20 Carvedilol [Coreg] 1 tab PO Q12 #60 tab 04/15/20 Insulin Glargine,Hum.rec.anlog [Lantus Insulin 100 Unit/1 ml 10 ml] 10 unit SUBCUT DAILY #1 unit 04/15/20 Losartan Potassium [Cozaar 50 mg Tablet] 50 mg PO QPM #30 tablet 04/15/20 Nifedipine [Nifedipine ER] 90 mg PO DAILY #30 tablet.er 04/15/20 History of Present Illiness History of Present Illness: MINAL ROBERT JR is a 74 year old male Physical Exam Vital Signs: Temp Pulse Resp BP Pulse Ox 97.6 F 70 17 162/69 H 97 04/15/20 14:50 04/15/20 14:50 04/15/20 14:50 04/15/20 14:50 04/15/20 14:50 Intake & Output 04/14/20 04/15/20 04/16/20 06:59 06:59 06:59 Intake Total 147 668 360 Output Total 225 Balance 147 443 360 Weight 99.2 kg 95.4 kg Results Laboratory Results: WBC 8.5 10^3/uL (4.0-10.5) 04/14/20 09:13 RBC 4.15 10^6/uL (4.35-5.55) L 04/14/20 09:13 Hgb 12.8 g/dL (13.5-17.0) L 04/14/20 09:13 Hct 36.2 % (37.9-51.0) L 04/14/20 09:13 MCV 87 fl (80-97) 04/14/20 09:13 MCH 30.8 pg (27.0-33.4) 04/14/20 09:13 MCHC 35.3 g/dL (32.0-36.0) 04/14/20 09:13 RDW 14.6 % (11.5-14.0) H 04/14/20 09:13 Plt Count 205 10^3/uL (150-450) 04/14/20 09:13 Lymph % (Auto) 31.0 % (13-45) 04/14/20 09:13 [place] % (Auto) 6.5 % (3-13) 04/14/20 09:13 Eos % (Auto) 2.9 % (0-6) 04/14/20 09:13 Baso % (Auto) 1.4 % (0-2) 04/14/20 09:13 Absolute Neuts (auto) 5.0 10^3/uL (1.7-8.2) 04/14/20 09:13 Absolute Lymphs (auto) 2.6 10^3/uL (0.5-4.7) 04/14/20 09:13 Absolute Monos (auto) 0.6 10^3/uL (0.1-1.4) 04/14/20 09:13 Absolute Eos (auto) 0.2 10^3/uL (0.0-0.6) 04/14/20 09:13 Absolute Basos (auto) 0.1 10^3/uL (0.0-0.2) 04/14/20 09:13 Seg Neutrophils % 58.2 % (42-78) 04/14/20 09:13 PT 13.6 SEC (11.4-15.4) 04/13/20 20:26 INR 1.02 04/13/20 20:26 APTT 31.8 SEC (23.5-35.8) 04/13/20 20:26 Sodium 139.4 mmol/L (137-145) 04/14/20 09:13 Potassium 4.2 mmol/L (3.6-5.0) 04/14/20 18:16 Chloride 105 mmol/L (98-107) 04/14/20 09:13 Carbon Dioxide 27 mmol/L (22-30) 04/14/20 09:13 Anion Gap 7 (5-19) 04/14/20 09:13 BUN 14 mg/dL (7-20) 04/14/20 09:13 Creatinine 1.68 mg/dL (0.52-1.25) H 04/14/20 09:13 Est GFR ( Amer) 49 (>60) L 04/14/20 09:13 Est GFR (MDRD) Non-Af 40 (>60) L 04/14/20 09:13 Glucose 101 mg/dL (75-110) 04/14/20 09:13 POC Glucose 180 mg/dL (70-110) H 04/15/20 11:57 Hemoglobin A1c % 5.9 % (4.7-6.0) 04/14/20 09:13 Calcium 8.2 mg/dL (8.4-10.2) L 04/14/20 09:13 Total Bilirubin 0.8 mg/dL (0.2-1.3) 04/13/20 20:26 Direct Bilirubin 0.3 mg/dL (0.0-0.4) 04/13/20 20:26 Neonat Total Bilirubin Not Reportable 04/13/20 20:26 Neonat Direct Bilirubin Not Reportable 04/13/20 20:26 Neonat Indirect Bili Not Reportable 04/13/20 20:26 AST 20 U/L (17-59) 04/13/20 20:26 ALT 9 U/L (<50) 04/13/20 20:26 Alkaline Phosphatase 61 U/L (38-126) 04/13/20 20:26 Creatine Kinase 89 U/L (55-170) 04/13/20 20:26 CK-MB (CK-2) 1.11 ng/mL (<4.55) 04/13/20 20:26 Troponin I 0.060 ng/mL 04/14/20 18:16 Total Protein 6.0 g/dL (6.3-8.2) L 04/13/20 20: Albumin 3.3 g/dL (3.5-5.0) L 04/13/20 20:26 04/13/20 04/14/20 04/14/20 20:26 02:15 09:13 CK-MB (CK-2) 1.11 Troponin I 0.055 0.098 0.103 04/14/20 18:16 CK-MB (CK-2) Troponin I 0.060 Impressions: Head CT 04/13/20 19:32 IMPRESSION: NO ACUTE INTRACRANIAL FINDINGS. EVIDENCE OF ACUTE STROKE: NO. Chest X-Ray 04/13/20 19:36 IMPRESSION: NO ACUTE FINDINGS. Head MRI 04/14/20 07:00 IMPRESSION: Negative for acute or sub-acute infarction. EVIDENCE OF ACUTE STROKE: NO. Stroke Is this a Stroke Patient?: No Acute Heart Failure Is this a Heart Failure Patient?: No
[2020-04-15] MEDS ORDERED: LOSARTAN POTASSIUM 50 MG TABLET PO SCH ×2 (18:00→22:00)
== END 2020-04-15 16:45 | disposition home or self-care (01) | DRG 683 ==
LOC: ER 19:29 → EH 23:47 → ICU 04-14 05:58 → 5 04-15 02:35
PROVIDERS: ADMIT Hospitalist; ATTEND Hospitalist
DX: I12.9 Hypertensive chronic kidney disease with stage 1 through stage 4 chronic kidney disease, or unspecified chronic kidney disease (principal); R47.01 Aphasia; E11.65 Type 2 diabetes mellitus with hyperglycemia; E78.5 Hyperlipidemia, unspecified; E87.6 Hypokalemia; N18.32 Chronic kidney disease, stage 3b; I69.393 Ataxia following cerebral infarction; G25.0 Essential tremor; E11.22 Type 2 diabetes mellitus with diabetic chronic kidney disease; Z66 Do not resuscitate; G89.4 Chronic pain syndrome; F32.9 Major depressive disorder, single episode, unspecified; F41.1 Generalized anxiety disorder; R29.704 NIHSS score 4; Z96.653 Presence of artificial knee joint, bilateral; Z23 Encounter for immunization; Z87.891 Personal history of nicotine dependence; Z79.82 Long term (current) use of aspirin; Z79.4 Long term (current) use of insulin; Z79.899 Other long term (current) drug therapy
CPT/HCPCS: 36415; 70450; 70551; 71045; 80048; 80053; 82550; 82553; 82962; 83036; 84132; 84484; 85025; 85610; 85730; 90471; 90686; 93005; 93010; 99285; G0008; J1650; J1815; J3490; J7030